=== PATIENT | male | born 1950 | race African-American/Black ===

== ENCOUNTER 2019-09-17 16:16 | Inpatient (IN) | payer OTHER ==
[~2019-09-17] VITALS: Ht 190.5 cm; Wt 99.8 kg
[2019-09-17 16:20] VITALS: BP 153/82
--- NOTE | 2019-09-17 16:42 | Emergency Room Report ---
History of Present Illness General Chief Complaint: Generalized Weakness Source: Patient, EMS Present Illness HPI Patient presents with 5 to 7 days of intermittent bouts of near syncope. Is worse when he gets up at night. He has passed out a couple of times. Denies chest pain or palpitations at that time. He feels generalized weakness. In addition he states he has been nauseated without any vomiting or diarrhea. He has passed black tarry stools. He denies any abdominal pain. He has not taken any Pepto-Bismol recently. When he walks he gets out of breath easily. He denies any cough or sore throat. Patient denies any chest pain or palpitations. He has been isolating himself. He has gone to the [employer] to shop but usually covers his face with a mask. He denies any known contact with COVID-19 suspected people. No fevers, chills, dysuria, joint pain, rashes, depression, anxiety, headache. Patient has a history of hypertension. 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 [place] Reviewed Nursing Documentation: PMH: Agreed; PSxH: Agreed Nursing Documentation-PM Past Medical History: No History, Except For Hx Hypertension: Yes Review of Systems All Other Systems: negative except mentioned in HPI Physical Exam Vital Signs Date Time Temp Pulse Resp B/P (MAP) Pulse Ox O2 Delivery O2 Flow Rate FiO2 09/17/19 16:08 98.6 80 17 153/82 (105) 98 Room Air Sp02 EP Interpretation: reviewed, normal General Appearance: well appearing, no apparent distress, GCS 15, other - dyspneic with minimal exertion Head: normocephalic Eyes: bilateral eye normal inspection, bilateral eye PERRL, bilateral eye EOMI ENT: moist mucus membranes Neck: supple Respiratory: lungs clear, normal breath sounds Cardiovascular #1: regular rate, rhythm Cardiovascular #2: 2+ radial (R) Gastrointestinal: normal inspection, normal bowel sounds, non tender, no mass, non-distended Rectal: heme negative stool Genitourinary: no CVA tenderness Musculoskeletal: back normal, normal range of motion, gait/station normal Neurologic: alert, oriented x3, grossly normal Psychiatric: mood/affect normal Skin: no rash, warm/dry Medical Decision Making Diagnostic Impression: Primary Impression: Syncope Qualified Codes: R55 - Syncope and collapse Additional Impression: Pneumonia due to COVID-19 virus ER Course Patient presents with several episodes of syncope associated with dark stools. Differential includes GI bleed, acute myocardial infarction, arrhythmia, vasovagal still amongst others. Evaluation with EKG, chest x-ray and labs. Patient is placed on a quality assurance monitor body. The patient will receive IV hydration, Pepcid and Zofran. Rectal performed and stool is guaiac negative. EKG with nonspecific ST-T wave changes. No acute injury. CXR with possible infiltrates. Patient now has fever. Suspect COVID and patient placed in isolation and COVID testing done. 1700 BC and lactic acid ordered. Rocephin and Azithromycin ordered. Decadron also. Patient desaturates with minimal exertion and gets dyspneic. Low white count with lymphopenia. Inflammatory markers positive. Negative troponin and d-dimer. At this point anticoagulation not indicated. COVID +. Discussed with patient. Patient admitted to telemetry to exclude arrhythmias and also for close monitoring of oxygen and respiratory status. Discussed with Dr. Valentino. Laboratory Tests Test 09/17/19 16:30 09/17/19 17:30 09/17/19 19:40 White Blood Count 6.3 K/UL (4.8-10.8) Red Blood Count 4.63 M/UL (4.70-6.10) L Hemoglobin 12.7 G/DL (14.2-18.0) L Hematocrit 40.6 % (42.0-52.0) L Mean Corpuscular Volume 88 FL (80-99) Mean Corpuscular Hemoglobin 27.4 PG (27.0-31.0) Mean Corpuscular Hemoglobin Concent 31.2 G/DL (32.0-36.0) L Red Cell Distribution Width 13.5 % (11.6-14.8) Platelet Count 229 K/UL (150-450) Mean Platelet Volume 6.8 FL (6.5-10.1) Neutrophils (%) (Auto) 77.4 % (45.0-75.0) H Lymphocytes (%) (Auto) 15.7 % (20.0-45.0) L Monocytes (%) (Auto) 6.2 % (1.0-10.0) Eosinophils (%) (Auto) 0.1 % (0.0-3.0) Basophils (%) (Auto) 0.7 % (0.0-2.0) Prothrombin Time 10.7 SEC (9.30-11.50) Prothrombin Time INR 1.0 (0.9-1.1) Activated Partial Thromboplast Time 30 SEC (23-33) D-Dimer 0.48 mg/L FEU (0.00-0.49) Sodium Level 135 MMOL/L (136-145) L Potassium Level 4.0 MMOL/L (3.5-5.1) Chloride Level 99 MMOL/L (98-107) Carbon Dioxide Level 24 MMOL/L (21-32) Anion Gap 12 mmol/L (5-15) Blood Urea Nitrogen 18 mg/dL (7-18) Creatinine 1.8 MG/DL (0.55-1.30) H Estimated Glomerular Filtration Rate 37.5 mL/min (>60) Glucose Level 111 MG/DL (74-106) H Calcium Level 8.5 MG/DL (8.5-10.1) Ferritin 992 NG/ML (8-388) H Total Bilirubin 0.2 MG/DL (0.2-1.0) Aspartate Amino Transferase (AST) 90 U/L (15-37) H Alanine Aminotransferase (ALT) 98 U/L (12-78) H Alkaline Phosphatase 67 U/L (46-116) Lactate Dehydrogenase 392 U/L (81-234) H Total Creatine Kinase 457 U/L (26-308) H Troponin I 0.020 ng/mL (0.000-0.056) Pro-B-Type Natriuretic Peptide 114 pg/mL (0-125) Total Protein 7.2 G/DL (6.4-8.2) Albumin 3.3 G/DL (3.4-5.0) L Globulin 3.9 g/dL Albumin/Globulin Ratio 0.8 (1.0-2.7) L Lipase 282 U/L (73-393) Lactic Acid Level 0.70 mmol/L (0.4-2.0) Urine Color Pale yellow Urine Appearance Clear Urine pH 6 (4.5-8.0) Urine Specific [place] 1.015 (1.005-1.035) Urine Protein 2+ (NEGATIVE) H Urine Glucose (UA) Negative (NEGATIVE) Urine Ketones Negative (NEGATIVE) Urine Blood 2+ (NEGATIVE) H Urine Nitrite Negative (NEGATIVE) Urine Bilirubin Negative (NEGATIVE) Urine Urobilinogen Normal MG/DL (0.0-1.0) Urine Leukocyte Esterase Negative (NEGATIVE) Urine RBC 5-10 /HPF (0 - 0) H Urine WBC 0-2 /HPF (0 - 0) Urine Squamous Epithelial Cells Few /LPF (NONE/OCC) Urine Bacteria Few /HPF (NONE) Urine Opiates Screen Negative (NEGATIVE) Urine Barbiturates Screen Negative (NEGATIVE) Phencyclidine (PCP) Screen Negative (NEGATIVE) Urine Amphetamines Screen Negative (NEGATIVE) Urine Benzodiazepines Screen Negative (NEGATIVE) Urine Cocaine Screen Negative (NEGATIVE) Urine Marijuana (THC) Screen Negative (NEGATIVE) Microbiology Date/Time Source Procedure Growth Status 09/17/19 17:05 Nasopharynx SARS-CoV-2 RdRp Gene Assay - Final Complete EKG Diagnostic Results Rate: normal Rhythm: NSR ST Segments: no acute changes Rhythm Strip Diag. Results EP Interpretation: yes Rhythm: NSR, no PVC's, no ectopy Chest X-Ray Diagnostic Results Chest X-Ray Diagnostic Results : Chest X-Ray Ordered: Yes # of Views/Limited/Complete: 1 View Indication: Shortness of Breath EP Interpretation: Yes Interpretation: no effusion, no pneumothorax, other - bilat infiltrates Impression: Other Electronically Signed by: Electronically signed by Owen Lopez MD Last Vital Signs Date Time Temp Pulse Resp B/P (MAP) Pulse Ox O2 Delivery O2 Flow Rate FiO2 09/17/19 23:00 60 09/17/19 22:30 98.6 18 152/84 98 Room Air Status: improved Disposition: ADMITTED INPATIENT Condition: Serious Owen Lopez MD Sep 17, 2019 16:42
--- NOTE | 2019-09-17 17:10 | Diagnostic Imaging Report ---
EXAM: XR Chest, 1 View CLINICAL HISTORY: SYNCOPE TECHNIQUE: Frontal view of the chest. COMPARISON: No relevant prior studies available. FINDINGS: Lungs: Airspace opacities seen within the mid to lower lungs likely inflammatory or infectious. Pleural space: Unremarkable. Heart: Heart is enlarged. Mediastinum: Unremarkable. Bones/joints: Unremarkable. IMPRESSION: Airspace opacities seen within the mid to lower lungs likely inflammatory or infectious.
[2019-09-17] MEDS ORDERED: cefTRIAXone 1 GM in NS 55 ML IVPB ONE (17:15)
[2019-09-17] MEDS ORDERED: Azithromycin 500 MG in D5W 275 ML IVPB ONE (17:15)
[2019-09-17 17:16] LABS: BASOPHILS % (AUTO) 0.7 % (0.0-2.0); EOSINOPHILS % (AUTO) 0.1 % (0.0-3.0); HEMATOCRIT 40.6 % (42.0-52.0); HEMOGLOBIN 12.7 G/DL (14.2-18.0); LYMPHOCYTES % (AUTO) 15.7 % (20.0-45.0); MEAN CORPUSCULAR VOLUME 88 FL (80-99); MONOCYTES % (AUTO) 6.2 % (1.0-10.0); NEUTROPHILS % (AUTO) 77.4 % (45.0-75.0); PLATELET COUNT 229 K/UL (150-450); RED BLOOD COUNT 4.63 M/UL (4.70-6.10); RED CELL DISTRIBUTION WIDTH 13.5 % (11.6-14.8); WHITE BLOOD COUNT 6.3 K/UL (4.8-10.8)
[2019-09-17 17:19] LABS: ANION GAP 12 mmol/L (5-15); BLOOD UREA NITROGEN 18 mg/dL (7-18); CALCIUM 8.5 MG/DL (8.5-10.1); CARBON DIOXIDE 24 MMOL/L (21-32); CHLORIDE 99 MMOL/L (98-107); CREATININE 1.8 MG/DL (0.55-1.30); SODIUM 135 MMOL/L (136-145)
[2019-09-17 17:29] LABS: ALANINE AMINOTRANSFERASE 98 U/L (12-78); ALBUMIN 3.3 G/DL (3.4-5.0); ALBUMIN/GLOBULIN RATIO 0.8 (1.0-2.7); ALKALINE PHOSPHATASE 67 U/L (46-116); ASPARTATE AMINO TRANSFERASE 90 U/L (15-37); BILIRUBIN,TOTAL 0.2 MG/DL (0.2-1.0); CREATINE KINASE 457 U/L (26-308)
[2019-09-17 17:51] LABS: FERRITIN 992 NG/ML (8-388); LACTATE DEHYDROGENASE 392 U/L (81-234)
[2019-09-17 19:20] VITALS: BP 154/85
[2019-09-17 20:15] LABS: APPEARANCE,URINE CLEAR; BILIRUBIN, URINE NEGATIVE (NEGATIVE); COLOR,URINE PALE YELLOW; GLUCOSE, URINE (UA) NEGATIVE (NEGATIVE); KETONES,URINE NEGATIVE (NEGATIVE); LEUKOCYTE ESTERASE ,URINE NEGATIVE (NEGATIVE); NITRITE,URINE NEGATIVE (NEGATIVE); PH,URINE 6 (4.5-8.0); PROTEIN,URINE 2+ (NEGATIVE); UROBILINOGEN,URINE NORMAL MG/DL (0.0-1.0)
[2019-09-17 21:07] VITALS: BP 156/83
[2019-09-17 23:15] VITALS: BP 147/75
[2019-09-17] MEDS ORDERED: Pantoprazole 80 MG in NS 250 ML IV SCH (23:30)
[2019-09-17] MEDS ORDERED: Acetaminophen 650 MG SUPP RECTAL PRN (23:30)
[2019-09-17] MEDS ORDERED: AMLODIPINE BESYL5 MG ORAL (23:47)
[2019-09-18] MEDS: D5 1/2NS w/KCl 20mEq 1,000 ML IV SCH ×4 (01:28→23:43)
[2019-09-18 03:56] VITALS: BP 136/77
[2019-09-18 06:25] LABS: HEMATOCRIT 40.4 % (42.0-52.0); HEMOGLOBIN 12.7 G/DL (14.2-18.0); MEAN CORPUSCULAR VOLUME 88 FL (80-99); PLATELET COUNT 249 K/UL (150-450); RED BLOOD COUNT 4.57 M/UL (4.70-6.10); RED CELL DISTRIBUTION WIDTH 13.2 % (11.6-14.8); WHITE BLOOD COUNT 5.5 K/UL (4.8-10.8)
--- NOTE | 2019-09-18 06:45 | General Progress Note ---
Assessment/Plan Problem List: (1) Black stools ICD Codes: K92.1 - Melena SNOMED: 421873980 (2) Syncope ICD Codes: R55 - Syncope and collapse SNOMED: 454542325 Qualifiers: Qualified Codes: R55 - Syncope and collapse (3) Pneumonia due to COVID-19 virus ICD Codes: U07.1 - COVID-19; J12.89 - Other viral pneumonia SNOMED: 266823884, [id number] Assessment/Plan: stable H&H above 12 pending stool ob start ppi bid EGD on hold given COVID + and stable H&H start clears and advance as tolerated Subjective Allergies: Coded Allergies: No Known Allergies (Unverified , 09/17/19) Objective Last 24 Hour Vital Signs Date Time Temp Pulse Resp B/P (MAP) Pulse Ox O2 Delivery O2 Flow Rate FiO2 09/18/19 04:23 50 09/18/19 03:56 97.9 54 20 136/77 (96) 98 09/17/19 23:42 60 09/17/19 23:15 97.9 59 20 147/75 (99) 98 09/17/19 23:00 60 09/17/19 22:30 98.6 87 18 152/84 98 Room Air 09/17/19 22:27 Room Air 09/17/19 21:07 98.6 84 17 156/83 98 Room Air 09/17/19 19:20 98.9 09/17/19 19:20 98.6 82 17 154/85 98 Room Air 09/17/19 16:20 98.6 17 153/82 98 Room Air 09/17/19 16:20 80 17 Room Air 09/17/19 16:08 98.6 80 17 153/82 (105) 98 Room Air Intake and Output 09/17/19 09/18/19 19:00 07:00 Intake Total 1575 ml Output Total 2000 ml Balance -425 ml Intake Oral 200 ml IV Total 1375 ml Output Urine Total 2000 ml # Voids 6 Laboratory Tests 09/17/19 16:30: White Blood Count 6.3, Red Blood Count 4.63L, Hemoglobin 12.7L, Hematocrit 40.6L , Mean Corpuscular Volume 88, Mean Corpuscular Hemoglobin 27.4, Mean Corpuscular Hemoglobin Concent 31.2L, Red Cell Distribution Width 13.5, Platelet Count 229, Mean Platelet Volume 6.8, Neutrophils (%) (Auto) 77.4H, Lymphocytes (%) (Auto) 15.7L, Monocytes (%) (Auto) 6.2, Eosinophils (%) (Auto) 0.1, Basophils (%) (Auto) 0.7, Prothrombin Time 10.7, Prothromb Time International Ratio 1.0, Activated Partial Thromboplast Time 30, D-Dimer 0.48, Sodium Level 135L, Potassium Level 4.0, Chloride Level 99, Carbon Dioxide Level 24, Anion Gap 12, Blood Urea Nitrogen 18, Creatinine 1.8H, Estimat Glomerular Filtration Rate 37.5, Glucose Level 111H, Calcium Level 8.5, Ferritin 992H, Total Bilirubin 0.2, Aspartate Amino Transf (AST/SGOT) 90H, Alanine Aminotransferase (ALT/SGPT) 98H, Alkaline Phosphatase 67, Lactate Dehydrogenase 392H, Total Creatine Kinase 457H, Troponin I 0.020, Pro-B-Type Natriuretic Peptide 114, Total Protein 7.2, Albumin 3.3L, Globulin 3.9, Albumin/Globulin Ratio 0.8L, Lipase 282 09/17/19 17:30: Lactic Acid Level 0.70 09/17/19 19:40: Urine Color Pale yellow, Urine Appearance Clear, Urine pH 6, Urine Specific [place] 1.015, Urine Protein 2+H, Urine Glucose (UA) Negative, Urine Ketones Negative, Urine Blood 2+H, Urine Nitrite Negative, Urine Bilirubin Negative, Urine Urobilinogen Normal, Urine Leukocyte Esterase Negative, Urine RBC 5-10H, Urine WBC 0-2, Urine Squamous Epithelial Cells Few, Urine Bacteria Few, Urine Opiates Screen Negative, Urine Barbiturates Screen Negative, Phencyclidine (PCP ) Screen Negative, Urine Amphetamines Screen Negative, Urine Benzodiazepines Screen Negative, Urine Cocaine Screen Negative, Urine Marijuana (THC) Screen Negative 09/18/19 06:00: White Blood Count 5.5, Red Blood Count 4.57L, Hemoglobin 12.7L, Hematocrit 40.4L , Mean Corpuscular Volume 88, Mean Corpuscular Hemoglobin 27.8, Mean Corpuscular Hemoglobin Concent 31.5L, Red Cell Distribution Width 13.2, Platelet Count 249, Mean Platelet Volume 7.0, Neutrophils (%) (Auto) , Lymphocytes (%) (Auto) , Monocytes (%) (Auto) , Eosinophils (%) (Auto) , Basophils (%) (Auto) , Sodium Level [Pending], Potassium Level [Pending], Chloride Level [Pending], Carbon Dioxide Level [Pending], Blood Urea Nitrogen [ Pending], Creatinine [Pending], Estimat Glomerular Filtration Rate [Pending], Glucose Level [Pending], Calcium Level [Pending], Ferritin [Pending], Lactate Dehydrogenase [Pending], Troponin I [Pending], Neutrophils % (Manual) [Pending] , Lymphocytes % (Manual) [Pending], Platelet Estimate [Pending], Platelet Morphology [Pending], Erythrocyte Sedimentation Rate [Pending], C-Reactive Protein, Quantitative [Pending], Interleukin 6 (IL-6) [Pending] Height (Feet): 6 Height (Inches): 3.00 Weight (Pounds): 222 General Appearance: alert EENT: PERRL/EOMI Neck: supple Cardiovascular: normal rate Respiratory/Chest: decreased breath sounds Abdomen: soft, hypoactive bowel sounds Extremities: non-tender Scott Owens MD Sep 18, 2019 06:45
[2019-09-18 07:06] LABS: ANION GAP 11 mmol/L (5-15); BLOOD UREA NITROGEN 17 mg/dL (7-18); CARBON DIOXIDE 21 MMOL/L (21-32); CHLORIDE 105 MMOL/L (98-107); CREATININE 1.5 MG/DL (0.55-1.30); FERRITIN 967 NG/ML (8-388); LACTATE DEHYDROGENASE 359 U/L (81-234); POTASSIUM 4.9 MMOL/L (3.5-5.1); SODIUM 137 MMOL/L (136-145)
[2019-09-18 08:00] VITALS: BP 137/75
--- NOTE | 2019-09-18 09:43 | History and Physical ---
Michelle Reed BEER MAKER 09/18/19 0943: History of Present Illness General Date patient seen: Sep 18, 2019 Time patient seen: 08:00 Reason for Hospitalization: syncope, + COVID, GI bleeding Present Illness HPI 68 years old male with PMH of hypertension, TURP, presented to emergency room for evaluation of recurrent near syncope episodes. Symptoms were ongoing for a week. Patient passed out couple of times. He denied chest pain and palpitations. He reported generalized weakness. Patient was nauseated , but no vomiting. He reported passing black tarry stools. No abdominal pain. Patient reported shortness of breath while walking , but no cough ,no sore throat . Upon evaluation vital signs were stable ; pulse oximetry was stable on room air and pt was afebrile. Laboratory work-up revealed no leukocytosis ,hemoglobin 12.7 ,hematocrit 40.6, platelet count 229. BUN 18, creatinine 1.8. Glucose 111. Ferritin 992. LDH 392. D dimer 0.48. Troponin 0.02 , proBNP 114. ECG with sinus rhythm, no acute ischemic changes. AST 90 , ALT 98, lipase 282. Lactic acid 0.7 , Urinalysis revealed +2 protein, no pyuria and few bacteria Urine toxicology screen was negative. Rapid COVID-19 was positive. Chest x-ray revealed airspace opacities within the mid to lower lungs. Patient admitted for recurrent syncope , COVID-19 infection , pneumonia, GI bleeding, ROBERT Allergies: Coded Allergies: No Known Allergies (Unverified , 09/17/19) COVID-19 Screening Contact w/high risk pt: No Experienced COVID-19 symptoms?: Yes COVID-19 symptoms experienced: Shortness of Breath Medication History Scheduled Amlodipine Besylate* (Amlodipine Besylate*), 5 MG ORAL DAILY, (Reported) Patient History History Provided By: Patient Healthcare decision maker Resuscitation status Full code Advanced Directive on File Review of Systems Constitutional: Reports: weakness - generalized ENT: Reports: no symptoms Respiratory: Reports: other - SOB with walking Cardiovascular: Reports: no symptoms Gastrointestinal: Reports: see HPI, other - black tarry stools Genitourinary: Reports: other - prodstate surgery Musculoskeletal: Reports: no symptoms Skin: Reports: no symptoms Psychiatric: Reports: no symptoms Neurological: Reports: see HPI, other - recurrent presyncope episodes x 1 week , passed out few times Endocrine: Reports: no symptoms Hematologic/Lymphatic: Reports: no symptoms Physical Exam General Appearance: WD/WN - in NAD , alert Lines, tubes and drains: peripheral HEENT: normocephalic, atraumatic, anicteric, mucous membranes moist Neck: supple Respiratory/Chest: lungs clear, no respiratory distress, no accessory muscle use Cardiovascular/Chest: normal rate Abdomen: normal bowel sounds, non tender, soft Extremities: normal range of motion, no calf tenderness, normal capillary refill, no edema Skin Exam: warm/dry 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, no motor/sensory deficits, alert, oriented x 3, responsive Musculoskeletal: normal muscle bulk Last 24 Hour Vital Signs Date Time Temp Pulse Resp B/P (MAP) Pulse Ox O2 Delivery O2 Flow Rate FiO2 09/18/19 08:21 Room Air 09/18/19 08:00 96.4 58 18 137/75 (95) 98 09/18/19 04:23 50 09/18/19 03:56 97.9 54 20 136/77 (96) 98 09/17/19 23:42 60 09/17/19 23:15 97.9 59 20 147/75 (99) 98 09/17/19 23:00 60 09/17/19 22:30 98.6 87 18 152/84 98 Room Air 09/17/19 22:27 Room Air 09/17/19 21:07 98.6 84 17 156/83 98 Room Air 09/17/19 19:20 98.9 09/17/19 19:20 98.6 82 17 154/85 98 Room Air 09/17/19 16:20 98.6 17 153/82 98 Room Air 09/17/19 16:20 80 17 Room Air 09/17/19 16:08 98.6 80 17 153/82 (105) 98 Room Air Intake and Output 09/17/19 09/18/19 19:00 07:00 Intake Total 1575 ml Output Total 2000 ml Balance -425 ml Intake Oral 200 ml IV Total 1375 ml Output Urine Total 2000 ml # Voids 6 Laboratory Tests Test 09/17/19 16:30 09/17/19 17:30 09/17/19 19:40 09/18/19 06:00 White Blood Count 6.3 K/UL (4.8-10.8) 5.5 K/UL (4.8-10.8) Red Blood Count 4.63 M/UL (4.70-6.10) L 4.57 M/UL (4.70-6.10) L Hemoglobin 12.7 G/DL (14.2-18.0) L 12.7 G/DL (14.2-18.0) L Hematocrit 40.6 % (42.0-52.0) L 40.4 % (42.0-52.0) L Mean Corpuscular Volume 88 FL (80-99) 88 FL (80-99) Mean Corpuscular Hemoglobin 27.4 PG (27.0-31.0) 27.8 PG (27.0-31.0) Mean Corpuscular Hemoglobin Concent 31.2 G/DL (32.0-36.0) L 31.5 G/DL (32.0-36.0) L Red Cell Distribution Width 13.5 % (11.6-14.8) 13.2 % (11.6-14.8) Platelet Count 229 K/UL (150-450) 249 K/UL (150-450) Mean Platelet Volume 6.8 FL (6.5-10.1) 7.0 FL (6.5-10.1) Neutrophils (%) (Auto) 77.4 % (45.0-75.0) H % (45.0-75.0) Lymphocytes (%) (Auto) 15.7 % (20.0-45.0) L % (20.0-45.0) Monocytes (%) (Auto) 6.2 % (1.0-10.0) % (1.0-10.0) Eosinophils (%) (Auto) 0.1 % (0.0-3.0) % (0.0-3.0) Basophils (%) (Auto) 0.7 % (0.0-2.0) % (0.0-2.0) Prothrombin Time 10.7 SEC (9.30-11.50) Prothromb Time International Ratio 1.0 (0.9-1.1) Activated Partial Thromboplast Time 30 SEC (23-33) D-Dimer 0.48 mg/L FEU (0.00-0.49) Sodium Level 135 MMOL/L (136-145) L 137 MMOL/L (136-145) Potassium Level 4.0 MMOL/L (3.5-5.1) 4.9 MMOL/L (3.5-5.1) Chloride Level 99 MMOL/L (98-107) 105 MMOL/L (98-107) Carbon Dioxide Level 24 MMOL/L (21-32) 21 MMOL/L (21-32) Anion Gap 12 mmol/L (5-15) 11 mmol/L (5-15) Blood Urea Nitrogen 18 mg/dL (7-18) 17 mg/dL (7-18) Creatinine 1.8 MG/DL (0.55-1.30) H 1.5 MG/DL (0.55-1.30) H Estimat Glomerular Filtration Rate 37.5 mL/min (>60) 56.1 mL/min (>60) Glucose Level 111 MG/DL (74-106) H 166 MG/DL (74-106) H Calcium Level 8.5 MG/DL (8.5-10.1) 8.0 MG/DL (8.5-10.1) L Ferritin 992 NG/ML (8-388) H 967 NG/ML (8-388) H Total Bilirubin 0.2 MG/DL (0.2-1.0) Aspartate Amino Transf (AST/SGOT) 90 U/L (15-37) H Alanine Aminotransferase (ALT/SGPT) 98 U/L (12-78) H Alkaline Phosphatase 67 U/L (46-116) Lactate Dehydrogenase 392 U/L (81-234) H 359 U/L (81-234) H Total Creatine Kinase 457 U/L (26-308) H Troponin I 0.020 ng/mL (0.000-0.056) 0.006 ng/mL (0.000-0.056) Pro-B-Type Natriuretic Peptide 114 pg/mL (0-125) Total Protein 7.2 G/DL (6.4-8.2) Albumin 3.3 G/DL (3.4-5.0) L Globulin 3.9 g/dL Albumin/Globulin Ratio 0.8 (1.0-2.7) L Lipase 282 U/L (73-393) Lactic Acid Level 0.70 mmol/L (0.4-2.0) Urine Color Pale yellow Urine Appearance Clear Urine pH 6 (4.5-8.0) Urine Specific [place] 1.015 (1.005-1.035) Urine Protein 2+ (NEGATIVE) H Urine Glucose (UA) Negative (NEGATIVE) Urine Ketones Negative (NEGATIVE) Urine Blood 2+ (NEGATIVE) H Urine Nitrite Negative (NEGATIVE) Urine Bilirubin Negative (NEGATIVE) Urine Urobilinogen Normal MG/DL (0.0-1.0) Urine Leukocyte Esterase Negative (NEGATIVE) Urine RBC 5-10 /HPF (0 - 0) H Urine WBC 0-2 /HPF (0 - 0) Urine Squamous Epithelial Cells Few /LPF (NONE/OCC) Urine Bacteria Few /HPF (NONE) Urine Opiates Screen Negative (NEGATIVE) Urine Barbiturates Screen Negative (NEGATIVE) Phencyclidine (PCP) Screen Negative (NEGATIVE) Urine Amphetamines Screen Negative (NEGATIVE) Urine Benzodiazepines Screen Negative (NEGATIVE) Urine Cocaine Screen Negative (NEGATIVE) Urine Marijuana (THC) Screen Negative (NEGATIVE) Differential Total Cells Counted 100 Neutrophils % (Manual) 78 % (45-75) H Lymphocytes % (Manual) 17 % (20-45) L Monocytes % (Manual) 5 % (1-10) Eosinophils % (Manual) 0 % (0-3) Basophils % (Manual) 0 % (0-2) Band Neutrophils 0 % (0-8) Platelet Estimate Adequate Platelet Morphology Normal Red Blood Cell Morphology Normal Erythrocyte Sedimentation Rate 56 MM/HR (0-20) H C-Reactive Protein, Quantitative 1.1 mg/dL (0.00-0.90) H Interleukin 6 (IL-6) Pending Microbiology Date/Time Source Procedure Growth Status 09/17/19 17:05 Nasopharynx SARS-CoV-2 RdRp Gene Assay - Final Complete Height (Feet): 6 Height (Inches): 3.00 Weight (Pounds): 222 Medications Current Medications Medications (Trade) Dose Ordered Sig/Dae Route PRN Reason Start Time Stop Time Status Last Admin Dose Admin Acetaminophen (Tylenol) 650 mg Q4H PRN ORAL Mild Pain (Pain Scale 1-3) 09/17/19 23:30 10/17/19 23:29 Acetaminophen (Tylenol) 650 mg Q4H PRN RECTAL Mild Pain (Pain Scale 1-3) 09/17/19 23:30 10/17/19 23:29 Amlodipine Besylate (Norvasc) 5 mg DAILY ORAL 09/18/19 09:00 10/18/19 08:59 Dextrose/ Electrolytes 1,000 ml @ 120 mls/hr Q8H20M IV 09/17/19 23:30 10/17/19 23:29 09/18/19 01:28 Ondansetron HCl (Zofran) 4 mg Q4H PRN IVP Nausea & Vomiting 09/17/19 23:30 10/17/19 23:29 Pantoprazole (Protonix) 40 mg EVERY 12 HOURS IV 09/18/19 09:00 10/18/19 08:59 Assessment/Plan Assessment/Plan: ASSESSMENT COVID-19 infection Pneumonia likely due to COVID-19 Syncope GI bleeding ROBERT Hypertension Transaminitis PLAN OF CARE tele isolation O2 titrate to keep sat above 92%, MDI fup with regular COVID testing empiric abx : Azithromycin and ceftriaxone will add Zinc and vit C fup with CXR hold on steroid for now, given GI bleeding ID consult pending Venous Duplex BLE SCD given GI bleeding , D diemr stable monitor inflammatory markers, elevated ferritin and LDT check IL-6 serial troponin x 2 NGT, ECG no acute ischemic changes, r/o for acute [place] cardio eval pending ECHO BP management with CCB orthostatic VS syncope with diff plausible etiologies, including COVID, orthostatic changes, dehydration, GI bleed Protonix gtt GI follows trend LFT generous IVF monitor renal parameters, lytes, avoid nephrotoxics, nephro eval pending case discussed and evaluated by supervising physician Wiliam Valentino MD 09/18/19 1259: History of Present Illness General Reason for Hospitalization: syncope, + COVID, GI bleeding Present Illness Allergies: Coded Allergies: No Known Allergies (Unverified , 09/17/19) Medication History Scheduled Amlodipine Besylate* (Amlodipine Besylate*), 5 MG ORAL DAILY, (Reported) Assessment/Plan Assessment/Plan: Patient seen and examined with BEER MAKER. Agree with above A&P as it reflects our joint deliberations. COVID19 PNA Possible GIB/melanotic stool Syncope ROBERT -Supportive care -PRN O2 -No steroids 2/2 GIB -ID eval, will consider Remdesevir EUA -Continue Abx for now -Tele, trend trops, cards eval -mIVF, renal eval, monitor electrolytes -F/U GI/surg recs, PPI, hold off on endoscopy for now Michelle Reed NP Sep 18, 2019 09:43 Wiliam Valentino MD Sep 18, 2019 12:59
[2019-09-18] MEDS ORDERED: Albuterol 90mcg Inhaler 8gm INH PRN (09:45)
[2019-09-18] MEDS: Pantoprazole Inj IV SCH ×2 (09:46→20:53)
[2019-09-18] MEDS ORDERED: NS 275ml ONE (10:06)
--- NOTE | 2019-09-18 10:44 | Consultation ---
History of Present Illness General Date patient seen: Sep 18, 2019 Reason for Hospitalization: Generalized Weakness Present Illness HPI This is a very pleasant 68-year-old male with history of TURP that presented to [facility] complaining of syncopal episodes and change in bowel consistency. Patient states that recently when he is been standing up he has been feeling faint and passing out. Furthermore has had episodes of nausea and nonbloody emesis. He furthermore notes changes in stool consistency and has in the past 2 weeks his stool has gone from brown to darker near blackish color melena. Admitted for further care work-up and management. Considerations of GI bleed. Surgery called to evaluate and assist with care. Patient seen, patient evaluated, chart reviewed. Patient states that he has not had endoscopy or colonoscopy in the past. He has not had prior changes in stool consistency or color. Has been otherwise regular until the past 2 weeks when he is noted such changes. Hemoglobin stable. COVID positive. No abdominal pain. Neurological okay. States does have upset stomach at times when it feels empty. Allergies: Coded Allergies: No Known Allergies (Unverified , 09/17/19) COVID-19 Screening Contact w/high risk pt: No Experienced COVID-19 symptoms?: Yes COVID-19 symptoms experienced: Shortness of Breath Medication History Scheduled Amlodipine Besylate* (Amlodipine Besylate*), 5 MG ORAL DAILY, (Reported) Patient History History Provided By: Patient, Medical Record, PMD Healthcare decision maker Resuscitation status Advanced Directive on File Past Medical/Surgical History Past Medical/Surgical History: (1) Black stools (2) Pneumonia due to COVID-19 virus (3) Syncope Review of Systems Review of Symptoms General ROS: no weight loss or fever Psychological ROS: no depression or mood changes, no memory loss Ophthalmic ROS: no visual changes or eye irritation ENT ROS: no nasal congestion, hearing loss, dizziness Allergy and Immunology ROS: no allergic symptoms or urticaria Hematological and Lymphatic ROS: no swollen glands, unusual bleeding or bruising Endocrine ROS: no polyuria, polydipsia, weight changes, temperature intolerance Respiratory ROS: no cough, shortness of breath, or wheezing Cardiovascular ROS: no chest pain or dyspnea on exertion Gastrointestinal ROS: denies abdominal pain, bright red blood in stool. Musculoskeletal ROS: no myalgias or arthralgias Neurological ROS: no TIA or stroke symptoms Dermatological ROS: no new or changing skin lesions, rashes or pruritis Physical Exam Physical Exam General appearance: alert, cooperative, no distress, appears stated age Head: Normocephalic, without obvious abnormality, atraumatic Eyes: conjunctivae/corneas clear. PERRL, EOM's intact. Fundi benign Throat: Lips, mucosa, and tongue normal. Teeth and gums normal Neck: supple, symmetrical, trachea midline, no adenopathy, thyroid: not enlarged, symmetric, no tenderness/mass/nodules, no carotid bruit and no JVD Lungs: clear to auscultation bilaterally Heart: regular rate and rhythm, S1, S2 normal, no murmur, click, rub or gallop Abdomen: soft, non-tender. Bowel sounds normal. No masses, no organomegaly Extremities: extremities normal, atraumatic, no cyanosis or edema Pulses: 2+ and symmetric Skin: Skin color, texture, turgor normal. No rashes or lesions Neurologic: Grossly normal Last 24 Hour Vital Signs Date Time Temp Pulse Resp B/P (MAP) Pulse Ox O2 Delivery O2 Flow Rate FiO2 09/18/19 09:46 58 137/75 09/18/19 08:21 Room Air 09/18/19 08:00 51 09/18/19 08:00 96.4 58 18 137/75 (95) 98 09/18/19 04:23 50 09/18/19 03:56 97.9 54 20 136/77 (96) 98 09/17/19 23:42 60 09/17/19 23:15 97.9 59 20 147/75 (99) 98 09/17/19 23:00 60 09/17/19 22:30 98.6 87 18 152/84 98 Room Air 09/17/19 22:27 Room Air 09/17/19 21:07 98.6 84 17 156/83 98 Room Air 09/17/19 19:20 98.9 09/17/19 19:20 98.6 82 17 154/85 98 Room Air 09/17/19 16:20 98.6 17 153/82 98 Room Air 09/17/19 16:20 80 17 Room Air 09/17/19 16:08 98.6 80 17 153/82 (105) 98 Room Air Intake and Output 09/17/19 09/18/19 19:00 07:00 Intake Total 1575 ml Output Total 2000 ml Balance -425 ml Intake Oral 200 ml IV Total 1375 ml Output Urine Total 2000 ml # Voids 6 Laboratory Tests Test 09/17/19 16:30 09/17/19 17:30 09/17/19 19:40 09/18/19 06:00 White Blood Count 6.3 K/UL (4.8-10.8) 5.5 K/UL (4.8-10.8) Red Blood Count 4.63 M/UL (4.70-6.10) L 4.57 M/UL (4.70-6.10) L Hemoglobin 12.7 G/DL (14.2-18.0) L 12.7 G/DL (14.2-18.0) L Hematocrit 40.6 % (42.0-52.0) L 40.4 % (42.0-52.0) L Mean Corpuscular Volume 88 FL (80-99) 88 FL (80-99) Mean Corpuscular Hemoglobin 27.4 PG (27.0-31.0) 27.8 PG (27.0-31.0) Mean Corpuscular Hemoglobin Concent 31.2 G/DL (32.0-36.0) L 31.5 G/DL (32.0-36.0) L Red Cell Distribution Width 13.5 % (11.6-14.8) 13.2 % (11.6-14.8) Platelet Count 229 K/UL (150-450) 249 K/UL (150-450) Mean Platelet Volume 6.8 FL (6.5-10.1) 7.0 FL (6.5-10.1) Neutrophils (%) (Auto) 77.4 % (45.0-75.0) H % (45.0-75.0) Lymphocytes (%) (Auto) 15.7 % (20.0-45.0) L % (20.0-45.0) Monocytes (%) (Auto) 6.2 % (1.0-10.0) % (1.0-10.0) Eosinophils (%) (Auto) 0.1 % (0.0-3.0) % (0.0-3.0) Basophils (%) (Auto) 0.7 % (0.0-2.0) % (0.0-2.0) Prothrombin Time 10.7 SEC (9.30-11.50) Prothromb Time International Ratio 1.0 (0.9-1.1) Activated Partial Thromboplast Time 30 SEC (23-33) D-Dimer 0.48 mg/L FEU (0.00-0.49) Sodium Level 135 MMOL/L (136-145) L 137 MMOL/L (136-145) Potassium Level 4.0 MMOL/L (3.5-5.1) 4.9 MMOL/L (3.5-5.1) Chloride Level 99 MMOL/L (98-107) 105 MMOL/L (98-107) Carbon Dioxide Level 24 MMOL/L (21-32) 21 MMOL/L (21-32) Anion Gap 12 mmol/L (5-15) 11 mmol/L (5-15) Blood Urea Nitrogen 18 mg/dL (7-18) 17 mg/dL (7-18) Creatinine 1.8 MG/DL (0.55-1.30) H 1.5 MG/DL (0.55-1.30) H Estimat Glomerular Filtration Rate 37.5 mL/min (>60) 56.1 mL/min (>60) Glucose Level 111 MG/DL (74-106) H 166 MG/DL (74-106) H Calcium Level 8.5 MG/DL (8.5-10.1) 8.0 MG/DL (8.5-10.1) L Ferritin 992 NG/ML (8-388) H 967 NG/ML (8-388) H Total Bilirubin 0.2 MG/DL (0.2-1.0) Aspartate Amino Transf (AST/SGOT) 90 U/L (15-37) H Alanine Aminotransferase (ALT/SGPT) 98 U/L (12-78) H Alkaline Phosphatase 67 U/L (46-116) Lactate Dehydrogenase 392 U/L (81-234) H 359 U/L (81-234) H Total Creatine Kinase 457 U/L (26-308) H Troponin I 0.020 ng/mL (0.000-0.056) 0.006 ng/mL (0.000-0.056) Pro-B-Type Natriuretic Peptide 114 pg/mL (0-125) Total Protein 7.2 G/DL (6.4-8.2) Albumin 3.3 G/DL (3.4-5.0) L Globulin 3.9 g/dL Albumin/Globulin Ratio 0.8 (1.0-2.7) L Lipase 282 U/L (73-393) Lactic Acid Level 0.70 mmol/L (0.4-2.0) Urine Color Pale yellow Urine Appearance Clear Urine pH 6 (4.5-8.0) Urine Specific [place] 1.015 (1.005-1.035) Urine Protein 2+ (NEGATIVE) H Urine Glucose (UA) Negative (NEGATIVE) Urine Ketones Negative (NEGATIVE) Urine Blood 2+ (NEGATIVE) H Urine Nitrite Negative (NEGATIVE) Urine Bilirubin Negative (NEGATIVE) Urine Urobilinogen Normal MG/DL (0.0-1.0) Urine Leukocyte Esterase Negative (NEGATIVE) Urine RBC 5-10 /HPF (0 - 0) H Urine WBC 0-2 /HPF (0 - 0) Urine Squamous Epithelial Cells Few /LPF (NONE/OCC) Urine Bacteria Few /HPF (NONE) Urine Opiates Screen Negative (NEGATIVE) Urine Barbiturates Screen Negative (NEGATIVE) Phencyclidine (PCP) Screen Negative (NEGATIVE) Urine Amphetamines Screen Negative (NEGATIVE) Urine Benzodiazepines Screen Negative (NEGATIVE) Urine Cocaine Screen Negative (NEGATIVE) Urine Marijuana (THC) Screen Negative (NEGATIVE) Differential Total Cells Counted 100 Neutrophils % (Manual) 78 % (45-75) H Lymphocytes % (Manual) 17 % (20-45) L Monocytes % (Manual) 5 % (1-10) Eosinophils % (Manual) 0 % (0-3) Basophils % (Manual) 0 % (0-2) Band Neutrophils 0 % (0-8) Platelet Estimate Adequate Platelet Morphology Normal Red Blood Cell Morphology Normal Erythrocyte Sedimentation Rate 56 MM/HR (0-20) H C-Reactive Protein, Quantitative 1.1 mg/dL (0.00-0.90) H Interleukin 6 (IL-6) Pending Microbiology Date/Time Source Procedure Growth Status 09/17/19 17:05 Nasopharynx SARS-CoV-2 RdRp Gene Assay - Final Complete Height (Feet): 6 Height (Inches): 3.00 Weight (Pounds): 222 Medications Current Medications Medications (Trade) Dose Ordered Sig/Dae Route PRN Reason Start Time Stop Time Status Last Admin Dose Admin Acetaminophen (Tylenol) 650 mg Q4H PRN ORAL Mild Pain (Pain Scale 1-3) 09/17/19 23:30 10/17/19 23:29 Acetaminophen (Tylenol) 650 mg Q4H PRN RECTAL Mild Pain (Pain Scale 1-3) 09/17/19 23:30 10/17/19 23:29 Albuterol Sulfate (Proventil MDI) 2 puff Q4H PRN INH Shortness of Breath 09/18/19 09:45 12/17/19 09:44 Amlodipine Besylate (Norvasc) 5 mg DAILY ORAL 09/18/19 09:00 10/18/19 08:59 09/18/19 09:46 Ascorbic Acid (Vitamin C) 500 mg TWICE A DAY ORAL 09/18/19 18:00 10/18/19 17:59 Dextrose/ Electrolytes 1,000 ml @ 120 mls/hr Q8H20M IV 09/17/19 23:30 10/17/19 23:29 09/18/19 01:28 Ondansetron HCl (Zofran) 4 mg Q4H PRN IVP Nausea & Vomiting 09/17/19 23:30 10/17/19 23:29 Pantoprazole (Protonix) 40 mg EVERY 12 HOURS IV 09/18/19 09:00 10/18/19 08:59 09/18/19 09:46 Zinc Sulfate (Zinc Sulfate) 220 mg DAILY ORAL 09/19/19 09:00 12/18/19 08:59 Assessment/Plan Problem List: (1) GI bleed Assessment & Plan: 68-year-old male with recent changes in stool consistency and color. Melena. Has been identified approximately 2 weeks now. No bright red blood noted. No active bleeding noted. Anemia but hemoglobin stable. Has not had a colonoscopy in the past or an endoscopy prior. Currently COVID positive. GI input noted and appreciated. No active bleeding will hold on endoscopy during positive viral effect. We will plan for treating COVID related pneumonia and plan for potential elective colonoscopy endoscopy. In the meantime if active bleeding noted or worsening condition may consider with precautions. No acute surgical intervention planned. We will monitor with serial exams Trend labs Okay for diet as tolerated We will monitor stool Thank you for let me participate in patient's care will follow with recommendations ICD Codes: K92.2 - Gastrointestinal hemorrhage, unspecified SNOMED: 42115551 (2) Lab test positive for detection of COVID-19 virus ICD Codes: U07.1 - COVID-19 SNOMED: 748837589, 853251560 (3) Black stools ICD Codes: K92.1 - Melena SNOMED: 474895964 (4) Pneumonia due to COVID-19 virus Assessment & Plan: Lungs: Airspace opacities seen within the mid to lower lungs likely inflammatory or infectious. Pleural space: Unremarkable. Heart: Heart is enlarged. Mediastinum: Unremarkable. Bones/joints: Unremarkable. IMPRESSION: Airspace opacities seen within the mid to lower lungs likely inflammatory or infectious. ICD Codes: U07.1 - COVID-19; J12.89 - Other viral pneumonia SNOMED: 711335871, 389020086 (5) Syncope ICD Codes: R55 - Syncope and collapse SNOMED: 336038776 Qualifiers: Qualified Codes: R55 - Syncope and collapse Kwasi Epstein Sep 18, 2019 10:44
[2019-09-18 12:00] VITALS: BP 149/77
[2019-09-18 16:00] VITALS: BP 149/86
--- NOTE | 2019-09-18 16:32 | Consultation ---
Consult Note Consult Note Cardiology for Dr Dunn Full consult dictated [id number] Lana Arrington MD Sep 18, 2019 16:32
[2019-09-18] MEDS: Ascorbic Acid 500mg tab ORAL SCH (18:11)
--- NOTE | 2019-09-18 18:30 | Consultation ---
DATE OF CONSULTATION: 09/18/2019 Cardiology Consultation CONSULTING PHYSICIAN: Lana Arrington MD. This is a Cardiology consulting done as coverage for Miguel Dunn MD. REASON FOR CONSULTATION: Syncope. HISTORY OF PRESENT ILLNESS: Mr. Sutherland is a 68-year-old, man with a history of hypertension, who complains of about a 10-day history of progressive weakness, nausea, vomiting (food, fluid, no hematemesis or coffee-grounds emesis) and loose dark stool. He had a few episodes of dizziness and brief loss of consciousness without injury. He presented to the emergency room, where he was afebrile with pulse 80 sinus rhythm, blood pressure 153/82. He was admitted and has tested positive for COVID. Cardiology evaluation was requested for evaluation and treatment of his syncope. He has no history of chest pain, coronary artery disease, congestive heart failure, or arrhythmia. MEDICATIONS: At home, amlodipine 5 mg daily, and in the hospital albuterol inhaler q.4h p.r.n., Protonix 40 mg IV q.12 hours, Zofran 4 mg IV q.4 h. p.r.n., and Tylenol as needed. ALLERGIES: No known drug allergies. PAST MEDICAL HISTORY: As noted above. History of hypertension, history of BPH, status post TURP. 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 He has no history of tobacco, alcohol or drug use. PHYSICAL EXAMINATION: VITAL SIGNS: Blood pressure is 149/77, pulse 61 regular, respirations 20, temperature 100.2. Alert, well-developed male, in no acute distress. Oxygen saturation is 98% on room air. HEENT: Normocephalic, atraumatic. Pupils are equal, round, and reactive to light. Sclerae anicteric. Oral mucosa are moist. NECK: Supple. There is no jugular venous distention. No adenopathy. Carotid pulses are 2+ bilateral without bruits. LUNGS: Clear to auscultation bilaterally. HEART: Regular rate and rhythm. S1, S2 with no murmur or S3. ABDOMEN: Soft, nondistended, nontender. No palpable mass. EXTREMITIES: No cyanosis, clubbing, or edema. Distal lower extremity pulses are intact. SKIN: No rashes or lesions. Normal turgor. LABORATORY DATA: Hemoglobin 12.7, white blood count 5500, and platelets 249,000. Sedimentation rate 56, sodium 137, potassium 4.9, chloride 105, bicarb 21, BUN 17, and creatinine 1.5, troponin 0.006. COVID rapid positive. Chest x-ray showed bilateral airspace opacities in the mid to lower lungs. EKG shows sinus bradycardia, rate of 49 beats per minute, axis +[address]-segment or T-wave changes. QT interval 470 milliseconds. ASSESSMENT AND RECOMMENDATIONS: Mr. Sutherland is a 68-year-old man with hypertension who was admitted with a 10-day history of progressive weakness, nausea, vomiting, dark stools, possible melena and two to three syncopal episodes. He has been diagnosed with COVID pneumonia. He is currently hypertensive after receiving intravenous fluids (2 liters). His heart rate was relatively slow, sinus bradycardia in the 40s this morning, but has now increased to 60s to 50s. I believe his recent syncope was likely due to orthostasis in the setting of COVID pneumonia and decreased oral intake in this setting. However cannot rule out bradyarrhythmia as it appears that the patient does have some degree of sinus node disease. I would recommend continuing intravenous hydration, would obtain Infectious Disease evaluation with regard to his COVID pneumonia for further treatment recommendations. We would continue amlodipine for hypertension. Gastroenterology evaluation is recommended for further assessment of possible gastrointestinal bleeding. However at this time, he appears hemodynamically stable with normal vital signs, low-grade fever, good oxygen saturation on room air, and no evidence for active bleeding. We would continue telemetry monitoring. Follow orthostatic vital signs and maintain hydration, as above. Further recommendations will be made based on his clinical course. Once he is COVID negative, then would favor obtaining an echo to evaluate left ventricular function and wall motion. Dr. Dunn will continue to follow Mr. Sutherland when he returns on 09/19/2019. Thank you for allowing us to participate in his care. Lana Arrington M.D. DR: Yeison JOB#: [id number] CC:
--- NOTE | 2019-09-18 18:59 | Consultation ---
DATE OF CONSULTATION: 09/18/2019 NEPHROLOGY CONSULTATION CONSULTING PHYSICIAN: Dallas Ness MD. REFERRING PHYSICIAN: Wiliam Valentino MD. REASON FOR CONSULTATION: Acute kidney injury, abnormal labs. HISTORY OF PRESENT ILLNESS: The patient is a 68-year-old man who has generally been in good health. He had a prior prostatectomy, but is voiding well. Prior to this over the past several days, he has had generalized weakness, nausea, vomiting, some dark stools, and an episode of syncope or near syncope. He was found to have a positive test for COVID-19 and is in isolation. He has had some abdominal pains in the past and cough induced with eating. ALLERGIES: None known. SURGERIES: Prostatectomy. SYSTEM REVIEW: HEAD, EYES, EARS, NOSE, AND THROAT: Vision and hearing is good. PULMONARY: No history of asthma or TB. There is some dyspnea on exertion. CARDIAC: No angina, OR, or palpitations. GASTROINTESTINAL: See history of present illness. GENITOURINARY: No dysuria, hematuria, or kidney stones. No difficulty initiating streaming urine. MUSCULOSKELETAL: No swollen joints. NEUROLOGIC: No prior history of CVA or seizures. PHYSICAL EXAMINATION: GENERAL: Patient is lying in bed. VITAL SIGNS: Temperature 99, pulse 61, respirations 20, blood pressure 149/77. HEAD, EYES, EARS, NOSE, AND THROAT: Oral mucosa is moist. Sclerae are nonicteric. NECK: No adenopathy. LUNGS: No rales or rhonchi are heard. HEART: Rhythm is regular. No murmur or gallop. ABDOMEN: Soft without organomegaly. EXTREMITIES: No edema. PERTINENT LABORATORY DATA: On admission 09/17/2019, BUN 18, his creatinine is 1.8, elevated. The CK is 457. Electrolytes normal. Troponin 0.020. Albumin low at 3.3. AST 90, ALT is 98. On 09/18/2019, BUN 17, creatinine 1.5, glucose 166. Ferritin elevated at 967. His urinalysis shows 2+ protein, 5 to 10 red cells, and 0 to 2 white cells per high-power field. IMPRESSION: 1. Acute kidney injury, likely from dehydration 2. COVID-19 positive and possible acute kidney injury due to COVID-19. 3. Proteinuria, nonspecific likely due to acute illness. 4. Possible GI bleed. 5. Elevated liver enzymes, likely due to COVID-19. Other etiologies to be considered PLAN: Keep the patient adequately hydrated. We will follow up on his electrolytes and watch closely in view of comorbidities. Direction of the care for the COVID-[address] Valentino and other consultants. Dallas Ness M.D. DR: DEVONTE JOB#: [id number] CC:
[2019-09-18 20:00] VITALS: BP 146/76
[2019-09-19] VITALS: BP 118/68
[2019-09-19 04:00] VITALS: BP 148/74
[2019-09-19 07:27] LABS: HEMATOCRIT 40.5 % (42.0-52.0); HEMOGLOBIN 12.8 G/DL (14.2-18.0); MEAN CORPUSCULAR VOLUME 89 FL (80-99); PLATELET COUNT 271 K/UL (150-450); RED BLOOD COUNT 4.54 M/UL (4.70-6.10); RED CELL DISTRIBUTION WIDTH 12.9 % (11.6-14.8); WHITE BLOOD COUNT 10.8 K/UL (4.8-10.8)
[2019-09-19 08:00] VITALS: BP 134/67
[2019-09-19 08:10] LABS: ALANINE AMINOTRANSFERASE 114 U/L (12-78); ALBUMIN 2.6 G/DL (3.4-5.0); ALBUMIN/GLOBULIN RATIO 0.6 (1.0-2.7); ALKALINE PHOSPHATASE 67 U/L (46-116); ANION GAP 12 mmol/L (5-15); ASPARTATE AMINO TRANSFERASE 77 U/L (15-37); BILIRUBIN,TOTAL 0.3 MG/DL (0.2-1.0); BLOOD UREA NITROGEN 14 mg/dL (7-18); CALCIUM 8.3 MG/DL (8.5-10.1); CARBON DIOXIDE 23 MMOL/L (21-32); CHLORIDE 102 MMOL/L (98-107); CREATININE 1.7 MG/DL (0.55-1.30); POTASSIUM 4.3 MMOL/L (3.5-5.1); SODIUM 136 MMOL/L (136-145)
--- NOTE | 2019-09-19 08:24 | Pulmonology Progress Note ---
Subjective Allergies: Coded Allergies: No Known Allergies (Unverified , 09/17/19) Subjective on isolation no dizziness, no further syncopal episodes HH stable no further melanotic stools tolerates CL diet Objective Last 24 Hour Vital Signs Date Time Temp Pulse Resp B/P (MAP) Pulse Ox O2 Delivery O2 Flow Rate FiO2 09/19/19 06:00 89 88 99 09/19/19 04:00 99.0 78 18 148/74 (98) 96 09/19/19 04:00 60 09/19/19 00:00 99.0 63 20 118/68 (85) 96 09/19/19 00:00 54 09/18/19 22:00 85 86 100 09/18/19 21:24 99.0 09/18/19 21:00 Room Air 09/18/19 20:00 100.0 77 18 146/76 (99) 96 09/18/19 20:00 83 09/18/19 16:00 75 09/18/19 16:00 100.2 91 18 149/86 (107) 98 09/18/19 14:00 87 87 101 09/18/19 12:00 71 09/18/19 12:00 99.0 61 20 149/77 (101) 95 09/18/19 09:46 58 137/75 09/18/19 08:21 Room Air Intake and Output 09/18/19 09/19/19 19:00 07:00 Intake Total 2120 ml Output Total 700 ml Balance 1420 ml Intake Oral 800 ml IV Total 1320 ml Output Urine Total 700 ml # Voids 1 Objective General Appearance: WD/WN - in NAD , alert Lines, tubes and drains: peripheral HEENT: normocephalic, atraumatic, anicteric, mucous membranes moist Neck: supple Respiratory/Chest: lungs clear, no respiratory distress, no accessory muscle use Cardiovascular/Chest: normal rate Abdomen: normal bowel sounds, non tender, soft Extremities: normal range of motion, no calf tenderness, normal capillary refill, no edema Skin Exam: warm/dry 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, no motor/sensory deficits, alert, oriented x 3, responsive Musculoskeletal: normal muscle bulk Microbiology Date/Time Source Procedure Growth Status 09/17/19 17:30 Blood Blood Culture - Preliminary NO GROWTH AFTER 24 HOURS Resulted 09/17/19 17:00 Blood Blood Culture - Preliminary NO GROWTH AFTER 24 HOURS Resulted 09/17/19 17:05 Nasopharynx SARS-CoV-2 RdRp Gene Assay - Final Complete Laboratory Tests 09/19/19 06:53: White Blood Count 10.8#, Red Blood Count 4.54L, Hemoglobin 12.8L, Hematocrit 40.5L, Mean Corpuscular Volume 89, Mean Corpuscular Hemoglobin 28.2, Mean Corpuscular Hemoglobin Concent 31.6L, Red Cell Distribution Width 12.9, Platelet Count 271, Mean Platelet Volume 6.7, Neutrophils (%) (Auto) , Lymphocytes (%) (Auto) , Monocytes (%) (Auto) , Eosinophils (%) (Auto) , Basophils (%) (Auto) , Neutrophils % (Manual) [Pending], Lymphocytes % (Manual) [Pending], Platelet Estimate [Pending], Platelet Morphology [Pending], Sodium Level 136, Potassium Level 4.3, Chloride Level 102, Carbon Dioxide Level 23, Anion Gap 12, Blood Urea Nitrogen 14, Creatinine 1.7H, Estimat Glomerular Filtration Rate 48.5, Glucose Level 136H, Calcium Level 8.3L, Total Bilirubin 0.3, Aspartate Amino Transf (AST/SGOT) 77H, Alanine Aminotransferase (ALT/SGPT) 114H, Alkaline Phosphatase 67, Total Protein 6.8, Albumin 2.6L, Globulin 4.2, Albumin/Globulin Ratio 0.6L, Hepatitis A IgM Antibody [Pending], Hepatitis B Surface Antigen [Pending], Hepatitis B Core IgM Antibody [Pending], Hepatitis C Antibody [Pending] Current Medications Medications (Trade) Dose Ordered Sig/Dae Route PRN Reason Start Time Stop Time Status Last Admin Dose Admin Acetaminophen (Tylenol) 650 mg Q4H PRN ORAL Mild Pain (Pain Scale 1-3) 09/17/19 23:30 10/17/19 23:29 09/18/19 20:54 Acetaminophen (Tylenol) 650 mg Q4H PRN RECTAL Mild Pain (Pain Scale 1-3) 09/17/19 23:30 10/17/19 23:29 Albuterol Sulfate (Proventil MDI) 2 puff Q4H PRN INH Shortness of Breath 09/18/19 09:45 12/17/19 09:44 Amlodipine Besylate (Norvasc) 5 mg DAILY ORAL 09/18/19 09:00 10/18/19 08:59 09/18/19 09:46 Ascorbic Acid (Vitamin C) 500 mg TWICE A DAY ORAL 09/18/19 18:00 10/18/19 17:59 09/18/19 18:11 Dextrose/ Electrolytes 1,000 ml @ 120 mls/hr Q8H20M IV 09/17/19 23:30 10/17/19 23:29 09/18/19 23:43 Ondansetron HCl (Zofran) 4 mg Q4H PRN IVP Nausea & Vomiting 09/17/19 23:30 10/17/19 23:29 Pantoprazole (Protonix) 40 mg EVERY 12 HOURS IV 09/18/19 09:00 10/18/19 08:59 09/18/19 20:53 Zinc Sulfate (Zinc Sulfate) 220 mg DAILY ORAL 09/19/19 09:00 12/18/19 08:59 Assessment/Plan Assessment/Plan ASSESSMENT COVID-19 PNA possible GI bleeding /melanotic stools Syncope ROBERT Hx of hypertension Transaminitis PLAN OF CARE tele isolation O2 titrate to keep sat above 92%, MDI fup with regular COVID testing empiric abx : Azithromycin and ceftriaxone added Zinc and vit C fup with CXR hold on steroid for now, given GI bleeding ID consult pending, consider Remdesivir EUA Venous Duplex BLE SCD given GI bleeding , D dimerr stable monitor inflammatory markers, elevated ferritin 967, LDH 359, CRP 1.1 IL-6 pending serial troponin x 2 NGT, ECG no acute ischemic changes, r/o for acute DE cardio eval appreciated ECHO woth pEF 60%, no evidence of WMA BP management with CCB, stable orthostatic VS no evidence of orthostasis, started after already hydrated syncope with diff plausible etiologies, including COVID, orthostatic changes, dehydration, GI bleed per cardio syncope likely due to orthostasis in the setting of COVID pneumonia and decreased oral intake need to rule out bradyarrhythmia as it appeared that pt has some degree of sinus node disease. continue tele Protonix IV bid GI eval appreciated trend LFT per GI hold on endoscopy for now given + CoVID and stable HH advance diet as per GI stool OB x 2 pending generous IVF monitor renal parameters, lytes, avoid nephrotoxics, nephro eval appreciated creat 1.7 today pt wants to go home, lives alone, understands that he needs to be in isolation case discussed and evaluated by supervising physician Michelle Reed NP Sep 19, 2019 08:24
[2019-09-19] MEDS: D5 1/2NS w/KCl 20mEq 1,000 ML IV SCH ×2 (08:45→17:10)
[2019-09-19] MEDS: Pantoprazole Inj IV SCH ×2 (08:45→22:30)
[2019-09-19] MEDS: Zinc Sulfate 220mg ORAL SCH (08:45)
[2019-09-19] MEDS: Ascorbic Acid 500mg tab ORAL SCH ×2 (09:09→18:00)
--- NOTE | 2019-09-19 10:42 | General Progress Note ---
Assessment/Plan Problem List: (1) Black stools ICD Codes: K92.1 - Melena SNOMED: 284538693 (2) Syncope ICD Codes: R55 - Syncope and collapse SNOMED: 043525619 Qualifiers: Qualified Codes: R55 - Syncope and collapse (3) Pneumonia due to COVID-19 virus ICD Codes: U07.1 - COVID-19; J12.89 - Other viral pneumonia SNOMED: 019884675, [id number] Assessment/Plan: stable H&H above 12 pending stool ob ppi bid EGD on hold given COVID + and stable H&H advance diet Subjective ROS Limited/Unobtainable: Yes Allergies: Coded Allergies: No Known Allergies (Unverified , 09/17/19) Objective Last 24 Hour Vital Signs Date Time Temp Pulse Resp B/P (MAP) Pulse Ox O2 Delivery O2 Flow Rate FiO2 09/19/19 09:16 99.1 09/19/19 09:00 Room Air 09/19/19 08:45 89 134/67 09/19/19 08:00 101.5 89 20 134/67 (89) 94 09/19/19 08:00 79 09/19/19 06:00 89 88 99 09/19/19 04:00 99.0 78 18 148/74 (98) 96 09/19/19 04:00 60 09/19/19 00:00 99.0 63 20 118/68 (85) 96 09/19/19 00:00 54 09/18/19 22:00 85 86 100 09/18/19 21:00 Room Air 09/18/19 20:00 100.0 77 18 146/76 (99) 96 09/18/19 20:00 83 09/18/19 16:00 75 09/18/19 16:00 100.2 91 18 149/86 (107) 98 09/18/19 14:00 87 87 101 09/18/19 12:00 71 09/18/19 12:00 99.0 61 20 149/77 (101) 95 Intake and Output 09/18/19 09/19/19 19:00 07:00 Intake Total 2120 ml Output Total 700 ml Balance 1420 ml Intake Oral 800 ml IV Total 1320 ml Output Urine Total 700 ml # Voids 1 Laboratory Tests 09/19/19 06:53: White Blood Count 10.8#, Red Blood Count 4.54L, Hemoglobin 12.8L, Hematocrit 40.5L, Mean Corpuscular Volume 89, Mean Corpuscular Hemoglobin 28.2, Mean Corpuscular Hemoglobin Concent 31.6L, Red Cell Distribution Width 12.9, Platelet Count 271, Mean Platelet Volume 6.7, Neutrophils (%) (Auto) , Lymphocytes (%) (Auto) , Monocytes (%) (Auto) , Eosinophils (%) (Auto) , Basophils (%) (Auto) , Differential Total Cells Counted 100, Neutrophils % ( Manual) 85H, Lymphocytes % (Manual) 8L, Monocytes % (Manual) 7, Eosinophils % ( Manual) 0, Basophils % (Manual) 0, Band Neutrophils 0, Platelet Estimate Adequate, Platelet Morphology Normal, Red Blood Cell Morphology Normal, Sodium Level 136, Potassium Level 4.3, Chloride Level 102, Carbon Dioxide Level 23, Anion Gap 12, Blood Urea Nitrogen 14, Creatinine 1.7H, Estimat Glomerular Filtration Rate 48.5, Glucose Level 136H, Calcium Level 8.3L, Total Bilirubin 0.3, Aspartate Amino Transf (AST/SGOT) 77H, Alanine Aminotransferase (ALT/SGPT) 114H, Alkaline Phosphatase 67, Total Protein 6.8, Albumin 2.6L, Globulin 4.2, Albumin/Globulin Ratio 0.6L, Hepatitis A IgM Antibody [Pending], Hepatitis B Surface Antigen [Pending], Hepatitis B Core IgM Antibody [Pending], Hepatitis C Antibody [Pending] Height (Feet): 6 Height (Inches): 3.00 Weight (Pounds): 222 General Appearance: no apparent distress EENT: normal ENT inspection Neck: supple Cardiovascular: normal rate Respiratory/Chest: decreased breath sounds Abdomen: normal bowel sounds, non tender, soft Extremities: non-tender Scott Owens MD Sep 19, 2019 10:42
[2019-09-19 12:00] VITALS: BP 115/72
--- NOTE | 2019-09-19 12:24 | Consultation ---
History of Present Illness General Date patient seen: Sep 19, 2019 Chief Complaint: Generalized Weakness Present Illness HPI 68 y/o M with hx of BPH, prostatectomy, HTN presented to ED on 09/17/19 with 10 days of generalized weakness, nausea/vomiting, dark stools and an episode of near syncope. Rapid covid test is positive. Denied chest pain, abd pain, cough, sore throat, f/c, join pains, headache upon admission. He feels a lot better now. Denies SOB, cough. 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 He has no history of tobacco , alcohol or drug use. Fhx: non contributory Review of Systems All Other Systems: negative except mentioned in HPI Physical Exam Physical Exam Narrative HEENT: Normocephalic, atraumatic. Pupils are equal, round, and reactive to light. Sclerae anicteric. Oral mucosa are moist. NECK: Supple. There is no jugular venous distention. No adenopathy. Carotid pulses are 2+ bilateral without bruits. LUNGS: Clear to auscultation bilaterally. HEART: Regular rate and rhythm. S1, S2 with no murmur or S3. ABDOMEN: Soft, nondistended, nontender. No palpable mass. EXTREMITIES: No cyanosis, clubbing, or edema. Distal lower extremity pulses are intact. SKIN: No rashes or lesions. Normal turgor. Last 24 Hour Vital Signs Date Time Temp Pulse Resp B/P (MAP) Pulse Ox O2 Delivery O2 Flow Rate FiO2 09/19/19 09:16 99.1 09/19/19 09:00 Room Air 09/19/19 08:45 89 134/67 09/19/19 08:00 101.5 89 20 134/67 (89) 94 09/19/19 08:00 79 09/19/19 06:00 89 88 99 09/19/19 04:00 99.0 78 18 148/74 (98) 96 09/19/19 04:00 60 09/19/19 00:00 99.0 63 20 118/68 (85) 96 09/19/19 00:00 54 09/18/19 22:00 85 86 100 09/18/19 21:00 Room Air 09/18/19 20:00 100.0 77 18 146/76 (99) 96 09/18/19 20:00 83 09/18/19 16:00 75 09/18/19 16:00 100.2 91 18 149/86 (107) 98 09/18/19 14:00 87 87 101 09/18/19 12:00 71 09/18/19 12:00 99.0 61 20 149/77 (101) 95 Intake and Output 09/18/19 09/19/19 19:00 07:00 Intake Total 2120 ml Output Total 700 ml Balance 1420 ml Intake Oral 800 ml IV Total 1320 ml Output Urine Total 700 ml # Voids 1 Laboratory Tests Test 09/19/19 06:53 White Blood Count 10.8 K/UL (4.8-10.8) # Red Blood Count 4.54 M/UL (4.70-6.10) L Hemoglobin 12.8 G/DL (14.2-18.0) L Hematocrit 40.5 % (42.0-52.0) L Mean Corpuscular Volume 89 FL (80-99) Mean Corpuscular Hemoglobin 28.2 PG (27.0-31.0) Mean Corpuscular Hemoglobin Concent 31.6 G/DL (32.0-36.0) L Red Cell Distribution Width 12.9 % (11.6-14.8) Platelet Count 271 K/UL (150-450) Mean Platelet Volume 6.7 FL (6.5-10.1) Neutrophils (%) (Auto) % (45.0-75.0) Lymphocytes (%) (Auto) % (20.0-45.0) Monocytes (%) (Auto) % (1.0-10.0) Eosinophils (%) (Auto) % (0.0-3.0) Basophils (%) (Auto) % (0.0-2.0) Differential Total Cells Counted 100 Neutrophils % (Manual) 85 % (45-75) H Lymphocytes % (Manual) 8 % (20-45) L Monocytes % (Manual) 7 % (1-10) Eosinophils % (Manual) 0 % (0-3) Basophils % (Manual) 0 % (0-2) Band Neutrophils 0 % (0-8) Platelet Estimate Adequate Platelet Morphology Normal Red Blood Cell Morphology Normal Sodium Level 136 MMOL/L (136-145) Potassium Level 4.3 MMOL/L (3.5-5.1) Chloride Level 102 MMOL/L (98-107) Carbon Dioxide Level 23 MMOL/L (21-32) Anion Gap 12 mmol/L (5-15) Blood Urea Nitrogen 14 mg/dL (7-18) Creatinine 1.7 MG/DL (0.55-1.30) H Estimat Glomerular Filtration Rate 48.5 mL/min (>60) Glucose Level 136 MG/DL (74-106) H Calcium Level 8.3 MG/DL (8.5-10.1) L Total Bilirubin 0.3 MG/DL (0.2-1.0) Aspartate Amino Transf (AST/SGOT) 77 U/L (15-37) H Alanine Aminotransferase (ALT/SGPT) 114 U/L (12-78) H Alkaline Phosphatase 67 U/L (46-116) Total Protein 6.8 G/DL (6.4-8.2) Albumin 2.6 G/DL (3.4-5.0) L Globulin 4.2 g/dL Albumin/Globulin Ratio 0.6 (1.0-2.7) L Hepatitis A IgM Antibody Pending Hepatitis B Surface Antigen Pending Hepatitis B Core IgM Antibody Pending Hepatitis C Antibody Pending Height (Feet): 6 Height (Inches): 3.00 Weight (Pounds): 222 Medications Current Medications Medications (Trade) Dose Ordered Sig/Dae Route PRN Reason Start Time Stop Time Status Last Admin Dose Admin Acetaminophen (Tylenol) 650 mg Q4H PRN ORAL Mild Pain (Pain Scale 1-3) 09/17/19 23:30 10/17/19 23:29 09/19/19 08:46 Acetaminophen (Tylenol) 650 mg Q4H PRN RECTAL Mild Pain (Pain Scale 1-3) 09/17/19 23:30 10/17/19 23:29 Albuterol Sulfate (Proventil MDI) 2 puff Q4H PRN INH Shortness of Breath 09/18/19 09:45 12/17/19 09:44 Amlodipine Besylate (Norvasc) 5 mg DAILY ORAL 09/18/19 09:00 10/18/19 08:59 09/19/19 08:45 Ascorbic Acid (Vitamin C) 500 mg TWICE A DAY ORAL 09/18/19 18:00 10/18/19 17:59 09/19/19 09:09 Dextrose/ Electrolytes 1,000 ml @ 120 mls/hr Q8H20M IV 09/17/19 23:30 10/17/19 23:29 09/19/19 08:45 Ondansetron HCl (Zofran) 4 mg Q4H PRN IVP Nausea & Vomiting 09/17/19 23:30 10/17/19 23:29 Pantoprazole (Protonix) 40 mg EVERY 12 HOURS IV 09/18/19 09:00 10/18/19 08:59 09/19/19 08:45 Zinc Sulfate (Zinc Sulfate) 220 mg DAILY ORAL 09/19/19 09:00 12/18/19 08:59 09/19/19 08:45 Assessment/Plan Assessment/Plan: Abx: Ceftriaxone x1 09/16 Azithromycin x1 09/16 Assessment: Pneumonia- 2ry to COVID19- on RA -GI manifestation of covid (gastrotenteritis) -09/16 CXR: Airspace opacities seen within the mid to lower lungs likely inflammatory or infectious. -09/16 rapid covid neg -D-dimer 0.48 (09/16) -CRp 1.1 (09/07) -LDH 392 (09/16), 359 (09/17) -Ferritin 992 (09/16), 967 (09/17) Fever No leukocytosis Lymphopenia -u./a neg -09/16 BCx neg ROBERT Elevated LFTs BPH prostatectomy HTN Plan: -Continue Ceftriaxone and azithromycin #2 -Will consider remdesevir and decadron if Spo2 <94% at RA -f/u cx -Monitor CBC/CMP, temperatures -COVID19 isolation and testing -Monitor CXR and inflammatory markers Thank you for consulting [facility]. Will continue to follow along with you. Discussed wit Leona Hu M.D. Sep 19, 2019 12:24
--- NOTE | 2019-09-19 13:00 | Surgery Progress Note ---
Surgery Progress Note Subjective Additional Comments no acute events labs noted exam stable comfortable h/h stable Objective Last 24 Hour Vital Signs Date Time Temp Pulse Resp B/P (MAP) Pulse Ox O2 Delivery O2 Flow Rate FiO2 09/19/19 12:00 85 09/19/19 09:16 99.1 09/19/19 09:00 Room Air 09/19/19 08:45 89 134/67 09/19/19 08:00 101.5 89 20 134/67 (89) 94 09/19/19 08:00 79 09/19/19 06:00 89 88 99 09/19/19 04:00 99.0 78 18 148/74 (98) 96 09/19/19 04:00 60 09/19/19 00:00 99.0 63 20 118/68 (85) 96 09/19/19 00:00 54 09/18/19 22:00 85 86 100 09/18/19 21:00 Room Air 09/18/19 20:00 100.0 77 18 146/76 (99) 96 09/18/19 20:00 83 09/18/19 16:00 75 09/18/19 16:00 100.2 91 18 149/86 (107) 98 09/18/19 14:00 87 87 101 I&O Intake and Output 09/18/19 09/19/19 19:00 07:00 Intake Total 2120 ml Output Total 700 ml Balance 1420 ml Intake Oral 800 ml IV Total 1320 ml Output Urine Total 700 ml # Voids 1 Dressing: other Wound: other Drains: other Cardiovascular: RSR Respiratory: decreased breath sounds Abdomen: soft, non-tender, present bowel sounds Extremities: no tenderness, no cyanosis Laboratory Tests Test 09/19/19 06:53 09/19/19 12:40 White Blood Count 10.8 K/UL (4.8-10.8) # Red Blood Count 4.54 M/UL (4.70-6.10) L Hemoglobin 12.8 G/DL (14.2-18.0) L Hematocrit 40.5 % (42.0-52.0) L Mean Corpuscular Volume 89 FL (80-99) Mean Corpuscular Hemoglobin 28.2 PG (27.0-31.0) Mean Corpuscular Hemoglobin Concent 31.6 G/DL (32.0-36.0) L Red Cell Distribution Width 12.9 % (11.6-14.8) Platelet Count 271 K/UL (150-450) Mean Platelet Volume 6.7 FL (6.5-10.1) Neutrophils (%) (Auto) % (45.0-75.0) Lymphocytes (%) (Auto) % (20.0-45.0) Monocytes (%) (Auto) % (1.0-10.0) Eosinophils (%) (Auto) % (0.0-3.0) Basophils (%) (Auto) % (0.0-2.0) Differential Total Cells Counted 100 Neutrophils % (Manual) 85 % (45-75) H Lymphocytes % (Manual) 8 % (20-45) L Monocytes % (Manual) 7 % (1-10) Eosinophils % (Manual) 0 % (0-3) Basophils % (Manual) 0 % (0-2) Band Neutrophils 0 % (0-8) Platelet Estimate Adequate Platelet Morphology Normal Red Blood Cell Morphology Normal Sodium Level 136 MMOL/L (136-145) Potassium Level 4.3 MMOL/L (3.5-5.1) Chloride Level 102 MMOL/L (98-107) Carbon Dioxide Level 23 MMOL/L (21-32) Anion Gap 12 mmol/L (5-15) Blood Urea Nitrogen 14 mg/dL (7-18) Creatinine 1.7 MG/DL (0.55-1.30) H Estimat Glomerular Filtration Rate 48.5 mL/min (>60) Glucose Level 136 MG/DL (74-106) H Calcium Level 8.3 MG/DL (8.5-10.1) L Total Bilirubin 0.3 MG/DL (0.2-1.0) Aspartate Amino Transf (AST/SGOT) 77 U/L (15-37) H Alanine Aminotransferase (ALT/SGPT) 114 U/L (12-78) H Alkaline Phosphatase 67 U/L (46-116) Total Protein 6.8 G/DL (6.4-8.2) Albumin 2.6 G/DL (3.4-5.0) L Globulin 4.2 g/dL Albumin/Globulin Ratio 0.6 (1.0-2.7) L Hepatitis A IgM Antibody Pending Hepatitis B Surface Antigen Pending Hepatitis B Core IgM Antibody Pending Hepatitis C Antibody Pending Arterial Blood pH 7.415 (7.350-7.450) Arterial Blood Partial Pressure CO2 31.4 mmHg (35.0-45.0) L Arterial Blood Partial Pressure O2 89.3 mmHg (75.0-100.0) Arterial Blood HCO3 19.7 mmol/L (22.0-26.0) L Arterial Blood Oxygen Saturation 96.6 % (95-100) Arterial Blood Base Excess -3.8 (-2-2) L Mick Test Positive Plan Problems: (1) GI bleed Assessment & Plan: 68-year-old male with recent changes in stool consistency and color. Melena. Has been identified approximately 2 weeks now. No bright red blood noted. No active bleeding noted. Anemia but hemoglobin stable. Has not had a colonoscopy in the past or an endoscopy prior. Currently COVID positive. GI input noted and appreciated. No active bleeding will hold on endoscopy during positive viral effect. We will plan for treating COVID related pneumonia and plan for potential elective colonoscopy endoscopy. In the meantime if active bleeding noted or worsening condition may consider with precautions. No acute surgical intervention planned. We will monitor with serial exams Trend labs Okay for diet as tolerated We will monitor stool Thank you for let me participate in patient's care will follow with recommendations (2) Lab test positive for detection of COVID-19 virus (3) Black stools (4) Pneumonia due to COVID-19 virus Assessment & Plan: Lungs: Airspace opacities seen within the mid to lower lungs likely inflammatory or infectious. Pleural space: Unremarkable. Heart: Heart is enlarged. Mediastinum: Unremarkable. Bones/joints: Unremarkable. IMPRESSION: Airspace opacities seen within the mid to lower lungs likely inflammatory or infectious. (5) Syncope Kwasi Epstein Sep 19, 2019 13:00
[2019-09-19] MEDS: Azithromycin 250mg tab ORAL SCH (13:22)
[2019-09-19] MEDS: cefTRIAXone 1 GM in D5W 55 ML IVPB SCH (13:23)
--- NOTE | 2019-09-19 15:05 | Nephrology Progress Note ---
Assessment/Plan Problem List: (1) ROBERT (acute kidney injury) (2) Pneumonia due to COVID-19 virus (3) Syncope (4) Black stools (5) CKD (chronic kidney disease) stage 3, GFR 30-59 ml/min Plan continue iv hydration , comfort measures Subjective Constitutional: Reports: weakness HEENT: Reports: no symptoms Genitourinary: Reports: no symptoms Neurologic/Psychiatric: Reports: no symptoms Objective Objective Last 24 Hour Vital Signs Date Time Temp Pulse Resp B/P (MAP) Pulse Ox O2 Delivery O2 Flow Rate FiO2 09/19/19 14:00 86 88 93 09/19/19 12:00 85 09/19/19 12:00 100.0 86 20 115/72 (86) 95 09/19/19 09:16 99.1 09/19/19 09:00 Room Air 09/19/19 08:45 89 134/67 09/19/19 08:00 101.5 89 20 134/67 (89) 94 09/19/19 08:00 79 09/19/19 06:00 89 88 99 09/19/19 04:00 99.0 78 18 148/74 (98) 96 09/19/19 04:00 60 09/19/19 00:00 99.0 63 20 118/68 (85) 96 09/19/19 00:00 54 09/18/19 22:00 85 86 100 09/18/19 21:00 Room Air 09/18/19 20:00 100.0 77 18 146/76 (99) 96 09/18/19 20:00 83 09/18/19 16:00 75 09/18/19 16:00 100.2 91 18 149/86 (107) 98 Intake and Output 09/18/19 09/19/19 19:00 07:00 Intake Total 2120 ml Output Total 700 ml Balance 1420 ml Intake Oral 800 ml IV Total 1320 ml Output Urine Total 700 ml # Voids 1 Laboratory Tests 09/19/19 06:53: White Blood Count 10.8#, Red Blood Count 4.54L, Hemoglobin 12.8L, Hematocrit 40.5L, Mean Corpuscular Volume 89, Mean Corpuscular Hemoglobin 28.2, Mean Corpuscular Hemoglobin Concent 31.6L, Red Cell Distribution Width 12.9, Platelet Count 271, Mean Platelet Volume 6.7, Neutrophils (%) (Auto) , Lymphocytes (%) (Auto) , Monocytes (%) (Auto) , Eosinophils (%) (Auto) , Basophils (%) (Auto) , Differential Total Cells Counted 100, Neutrophils % ( Manual) 85H, Lymphocytes % (Manual) 8L, Monocytes % (Manual) 7, Eosinophils % ( Manual) 0, Basophils % (Manual) 0, Band Neutrophils 0, Platelet Estimate Adequate, Platelet Morphology Normal, Red Blood Cell Morphology Normal, Sodium Level 136, Potassium Level 4.3, Chloride Level 102, Carbon Dioxide Level 23, Anion Gap 12, Blood Urea Nitrogen 14, Creatinine 1.7H, Estimat Glomerular Filtration Rate 48.5, Glucose Level 136H, Calcium Level 8.3L, Total Bilirubin 0.3, Aspartate Amino Transf (AST/SGOT) 77H, Alanine Aminotransferase (ALT/SGPT) 114H, Alkaline Phosphatase 67, Total Protein 6.8, Albumin 2.6L, Globulin 4.2, Albumin/Globulin Ratio 0.6L, Hepatitis A IgM Antibody [Pending], Hepatitis B Surface Antigen [Pending], Hepatitis B Core IgM Antibody [Pending], Hepatitis C Antibody [Pending] 09/19/19 12:40: Arterial Blood pH 7.415, Arterial Blood Partial Pressure CO2 31.4L, Arterial Blood Partial Pressure O2 89.3, Arterial Blood HCO3 19.7L, Arterial Blood Oxygen Saturation 96.6, Arterial Blood Base Excess -3.8L, Mick Test Positive Height (Feet): 6 Height (Inches): 3.00 Weight (Pounds): 222 General Appearance: no apparent distress EENT: normal ENT inspection Neck: normal alignment Cardiovascular: normal rate, regular rhythm Respiratory/Chest: lungs clear, normal breath sounds Abdomen: non tender 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
--- NOTE | 2019-09-19 15:16 | Diagnostic Imaging Report ---
Indication: Cough Technique: One view of the chest Comparison: 09/17/2019 Findings: Again demonstrated are bilateral interstitial and airspace opacities. The heart is borderline enlarged. The pleural spaces are grossly clear. Findings are unchanged Impression: Unchanged, over 2 days, findings as above.
[2019-09-19 16:00] VITALS: BP 120/77
--- NOTE | 2019-09-19 19:13 | Cardiology Progress Note ---
Assessment/Plan Assessment/Plan syncope renal insuf abn lfts melanotic stool covid 19 pneumonia sinus zoey at admission tele personally reviewed ekg personally reviewed hgb not sig elevated remain febrile on abx sinus zoey nto been periss tent Subjective Subjective in isolation no dizziness, no further syncopal episodes HH stable no further melanotic stools tolerates CL diet Objective Last 24 Hour Vital Signs Date Time Temp Pulse Resp B/P (MAP) Pulse Ox O2 Delivery O2 Flow Rate FiO2 09/19/19 16:00 99.7 87 20 120/77 (91) 95 09/19/19 16:00 61 09/19/19 14:00 86 88 93 09/19/19 12:00 85 09/19/19 12:00 100.0 86 20 115/72 (86) 95 09/19/19 09:16 99.1 09/19/19 09:00 Room Air 09/19/19 08:45 89 134/67 09/19/19 08:00 101.5 89 20 134/67 (89) 94 09/19/19 08:00 79 09/19/19 06:00 89 88 99 09/19/19 04:00 99.0 78 18 148/74 (98) 96 09/19/19 04:00 60 09/19/19 00:00 99.0 63 20 118/68 (85) 96 09/19/19 00:00 54 09/18/19 22:00 85 86 100 09/18/19 21:00 Room Air 09/18/19 20:00 100.0 77 18 146/76 (99) 96 09/18/19 20:00 83 Intake and Output 09/18/19 09/19/19 19:00 07:00 Intake Total 2120 ml Output Total 700 ml Balance 1420 ml Intake Oral 800 ml IV Total 1320 ml Output Urine Total 700 ml # Voids 1 Laboratory Tests Test 09/19/19 06:53 09/19/19 12:40 White Blood Count 10.8 K/UL (4.8-10.8) # Red Blood Count 4.54 M/UL (4.70-6.10) L Hemoglobin 12.8 G/DL (14.2-18.0) L Hematocrit 40.5 % (42.0-52.0) L Mean Corpuscular Volume 89 FL (80-99) Mean Corpuscular Hemoglobin 28.2 PG (27.0-31.0) Mean Corpuscular Hemoglobin Concent 31.6 G/DL (32.0-36.0) L Red Cell Distribution Width 12.9 % (11.6-14.8) Platelet Count 271 K/UL (150-450) Mean Platelet Volume 6.7 FL (6.5-10.1) Neutrophils (%) (Auto) % (45.0-75.0) Lymphocytes (%) (Auto) % (20.0-45.0) Monocytes (%) (Auto) % (1.0-10.0) Eosinophils (%) (Auto) % (0.0-3.0) Basophils (%) (Auto) % (0.0-2.0) Differential Total Cells Counted 100 Neutrophils % (Manual) 85 % (45-75) H Lymphocytes % (Manual) 8 % (20-45) L Monocytes % (Manual) 7 % (1-10) Eosinophils % (Manual) 0 % (0-3) Basophils % (Manual) 0 % (0-2) Band Neutrophils 0 % (0-8) Platelet Estimate Adequate Platelet Morphology Normal Red Blood Cell Morphology Normal Sodium Level 136 MMOL/L (136-145) Potassium Level 4.3 MMOL/L (3.5-5.1) Chloride Level 102 MMOL/L (98-107) Carbon Dioxide Level 23 MMOL/L (21-32) Anion Gap 12 mmol/L (5-15) Blood Urea Nitrogen 14 mg/dL (7-18) Creatinine 1.7 MG/DL (0.55-1.30) H Estimat Glomerular Filtration Rate 48.5 mL/min (>60) Glucose Level 136 MG/DL (74-106) H Calcium Level 8.3 MG/DL (8.5-10.1) L Total Bilirubin 0.3 MG/DL (0.2-1.0) Aspartate Amino Transf (AST/SGOT) 77 U/L (15-37) H Alanine Aminotransferase (ALT/SGPT) 114 U/L (12-78) H Alkaline Phosphatase 67 U/L (46-116) Total Protein 6.8 G/DL (6.4-8.2) Albumin 2.6 G/DL (3.4-5.0) L Globulin 4.2 g/dL Albumin/Globulin Ratio 0.6 (1.0-2.7) L Hepatitis A IgM Antibody Pending Hepatitis B Surface Antigen Pending Hepatitis B Core IgM Antibody Pending Hepatitis C Antibody Pending Arterial Blood pH 7.415 (7.350-7.450) Arterial Blood Partial Pressure CO2 31.4 mmHg (35.0-45.0) L Arterial Blood Partial Pressure O2 89.3 mmHg (75.0-100.0) Arterial Blood HCO3 19.7 mmol/L (22.0-26.0) L Arterial Blood Oxygen Saturation 96.6 % (95-100) Arterial Blood Base Excess -3.8 (-2-2) L Mick Test Positive Microbiology Date/Time Source Procedure Growth Status 09/17/19 17:30 Blood Blood Culture - Preliminary NO GROWTH AFTER 24 HOURS Resulted 09/17/19 17:00 Blood Blood Culture - Preliminary NO GROWTH AFTER 24 HOURS Resulted 09/17/19 17:05 Nasopharynx SARS-CoV-2 RdRp Gene Assay - Final Complete Objective pt in isolation for covid per pulm pa Respiratory/Chest: lungs clear, no respiratory distress, no accessory muscle use Cardiovascular/Chest: normal rate Abdomen: normal bowel sounds, non tender, soft Extremities: normal range of motion, no calf tenderness, normal capillary refill, no giovanny Miguel Dunn MD Sep 19, 2019 19:13
[2019-09-19 20:00] VITALS: BP 120/72
[2019-09-20] VITALS: BP 136/72
[2019-09-20] MEDS: D5 1/2NS w/KCl 20mEq 1,000 ML IV SCH ×2 (01:30→06:59)
[2019-09-20 04:00] VITALS: BP 136/80
[2019-09-20 06:54] LABS: BASOPHILS % (AUTO) 1.3 % (0.0-2.0); EOSINOPHILS % (AUTO) 0.1 % (0.0-3.0); HEMATOCRIT 38.4 % (42.0-52.0); HEMOGLOBIN 12.1 G/DL (14.2-18.0); LYMPHOCYTES % (AUTO) 8.1 % (20.0-45.0); MEAN CORPUSCULAR VOLUME 89 FL (80-99); MONOCYTES % (AUTO) 7.4 % (1.0-10.0); NEUTROPHILS % (AUTO) 83.1 % (45.0-75.0); PLATELET COUNT 273 K/UL (150-450); RED BLOOD COUNT 4.33 M/UL (4.70-6.10); RED CELL DISTRIBUTION WIDTH 12.8 % (11.6-14.8); WHITE BLOOD COUNT 7.1 K/UL (4.8-10.8)
[2019-09-20 07:35] LABS: ALANINE AMINOTRANSFERASE 104 U/L (12-78); ALBUMIN 2.4 G/DL (3.4-5.0); ALBUMIN/GLOBULIN RATIO 0.6 (1.0-2.7); ALKALINE PHOSPHATASE 66 U/L (46-116); ANION GAP 10 mmol/L (5-15); ASPARTATE AMINO TRANSFERASE 64 U/L (15-37); BILIRUBIN,TOTAL 0.3 MG/DL (0.2-1.0); BLOOD UREA NITROGEN 11 mg/dL (7-18); CALCIUM 7.8 MG/DL (8.5-10.1); CARBON DIOXIDE 24 MMOL/L (21-32); CHLORIDE 105 MMOL/L (98-107); CREATININE 1.5 MG/DL (0.55-1.30); POTASSIUM 4.2 MMOL/L (3.5-5.1); SODIUM 139 MMOL/L (136-145)
[2019-09-20 07:38] LABS: BILIRUBIN,DIRECT < 0.1 MG/DL (0.0-0.3); FERRITIN 1210 NG/ML (8-388)
[2019-09-20 08:00] VITALS: BP 124/61
[2019-09-20] MEDS: Ascorbic Acid 500mg tab ORAL SCH ×2 (08:27→17:47)
[2019-09-20] MEDS: Pantoprazole Inj IV SCH ×2 (08:27→21:00)
[2019-09-20] MEDS: Azithromycin 250mg tab ORAL SCH (08:28)
[2019-09-20] MEDS: Zinc Sulfate 220mg ORAL SCH (08:28)
--- NOTE | 2019-09-20 09:11 | General Progress Note ---
Assessment/Plan Problem List: (1) Black stools ICD Codes: K92.1 - Melena SNOMED: 994832970 (2) Syncope ICD Codes: R55 - Syncope and collapse SNOMED: 549687028 Qualifiers: Qualified Codes: R55 - Syncope and collapse (3) Pneumonia due to COVID-19 virus ICD Codes: U07.1 - COVID-19; J12.89 - Other viral pneumonia SNOMED: [id number], [id number] Assessment/Plan: stable H&H above 12 pending stool ob ppi bid EGD on hold given COVID + and stable H&H Subjective ROS Limited/Unobtainable: Yes Allergies: Coded Allergies: No Known Allergies (Unverified , 09/17/19) Objective Last 24 Hour Vital Signs Date Time Temp Pulse Resp B/P (MAP) Pulse Ox O2 Delivery O2 Flow Rate FiO2 09/20/19 09:00 Room Air 09/20/19 08:28 82 124/61 09/20/19 08:00 98.4 82 20 124/61 (82) 95 09/20/19 06:15 74 73 89 09/20/19 04:36 62 09/20/19 04:00 98.1 55 20 136/80 (98) 96 09/20/19 02:00 97.8 09/20/19 00:00 99.8 60 20 136/72 (93) 96 09/20/19 00:00 57 09/19/19 21:00 Room Air 09/19/19 20:00 99.9 59 20 120/72 (88) 95 09/19/19 20:00 68 09/19/19 16:00 99.7 87 20 120/77 (91) 95 09/19/19 16:00 61 09/19/19 14:00 86 88 93 09/19/19 12:00 85 09/19/19 12:00 100.0 86 20 115/72 (86) 95 09/19/19 09:16 99.1 Intake and Output 09/19/19 09/20/19 19:00 07:00 Intake Total 440 ml Output Total 300 ml 600 ml Balance 140 ml -600 ml Intake Oral 440 ml Output Urine Total 300 ml 600 ml # Voids 1 Laboratory Tests 09/19/19 12:40: Arterial Blood pH 7.415, Arterial Blood Partial Pressure CO2 31.4L, Arterial Blood Partial Pressure O2 89.3, Arterial Blood HCO3 19.7L, Arterial Blood Oxygen Saturation 96.6, Arterial Blood Base Excess -3.8L, Mick Test Positive 09/20/19 06:12: White Blood Count 7.1, Red Blood Count 4.33L, Hemoglobin 12.1L, Hematocrit 38.4L , Mean Corpuscular Volume 89, Mean Corpuscular Hemoglobin 27.8, Mean Corpuscular Hemoglobin Concent 31.4L, Red Cell Distribution Width 12.8, Platelet Count 273, Mean Platelet Volume 6.7, Neutrophils (%) (Auto) 83.1H, Lymphocytes (%) (Auto) 8.1L, Monocytes (%) (Auto) 7.4, Eosinophils (%) (Auto) 0.1, Basophils (%) (Auto) 1.3, Fibrinogen 666H, D-Dimer 0.75H, Sodium Level 139 , Potassium Level 4.2, Chloride Level 105, Carbon Dioxide Level 24, Anion Gap 10 , Blood Urea Nitrogen 11, Creatinine 1.5H, Estimat Glomerular Filtration Rate 56.1, Glucose Level 114H, Calcium Level 7.8L, Ferritin 1210H, Total Bilirubin 0.3, Direct Bilirubin < 0.1, Aspartate Amino Transf (AST/SGOT) 64H, Alanine Aminotransferase (ALT/SGPT) 104H, Alkaline Phosphatase 66, Lactate Dehydrogenase 423H, C-Reactive Protein, Quantitative 3.0H, Total Protein 6.4, Albumin 2.4L, Globulin 4.0, Albumin/Globulin Ratio 0.6L, HIV (1&2) Antibody Rapid Negative, TB Test (T-Spot) [Pending], TB Test Nil Control (T-Spot) [ Pending], TB Test Panel A (T-Spot) [Pending], TB Test Panel B (T-Spot) [Pending] , TB Test Positive Control (T-Spot) [Pending] Height (Feet): 6 Height (Inches): 3.00 Weight (Pounds): 222 General Appearance: no apparent distress EENT: normal ENT inspection Neck: supple Cardiovascular: normal rate Respiratory/Chest: decreased breath sounds Abdomen: normal bowel sounds, non tender, soft Extremities: non-tender Scott Owens MD Sep 20, 2019 09:11
--- NOTE | 2019-09-20 10:08 | Pulmonology Progress Note ---
Subjective ROS Limited/Unobtainable: Yes Allergies: Coded Allergies: No Known Allergies (Unverified , 09/17/19) Subjective on isolation no dizziness, no further syncopal episodes HH stable no further melanotic stools tolerates regular diet on RA no SOB Objective Last 24 Hour Vital Signs Date Time Temp Pulse Resp B/P (MAP) Pulse Ox O2 Delivery O2 Flow Rate FiO2 09/20/19 09:00 Room Air 09/20/19 08:28 82 124/61 09/20/19 08:00 98.4 82 20 124/61 (82) 95 09/20/19 06:15 74 73 89 09/20/19 04:36 62 09/20/19 04:00 98.1 55 20 136/80 (98) 96 09/20/19 02:00 97.8 09/20/19 00:00 99.8 60 20 136/72 (93) 96 09/20/19 00:00 57 09/19/19 21:00 Room Air 09/19/19 20:00 99.9 59 20 120/72 (88) 95 09/19/19 20:00 68 09/19/19 16:00 99.7 87 20 120/77 (91) 95 09/19/19 16:00 61 09/19/19 14:00 86 88 93 09/19/19 12:00 85 09/19/19 12:00 100.0 86 20 115/72 (86) 95 Intake and Output 09/19/19 09/20/19 19:00 07:00 Intake Total 440 ml Output Total 300 ml 600 ml Balance 140 ml -600 ml Intake Oral 440 ml Output Urine Total 300 ml 600 ml # Voids 1 Objective General Appearance: WD/WN - in NAD , alert Lines, tubes and drains: peripheral HEENT: normocephalic, atraumatic, anicteric, mucous membranes moist Neck: supple Respiratory/Chest: lungs clear, no respiratory distress, no accessory muscle use Cardiovascular/Chest: normal rate Abdomen: normal bowel sounds, non tender, soft Extremities: normal range of motion, no calf tenderness, normal capillary refill, no edema Skin Exam: warm/dry Neurologic: production grip II-XII grossly normal, no motor/sensory deficits, alert, oriented x 3, responsive Musculoskeletal: normal muscle bulk Microbiology Date/Time Source Procedure Growth Status 09/17/19 17:30 Blood Blood Culture - Preliminary NO GROWTH AFTER 48 HOURS Resulted 09/17/19 17:00 Blood Blood Culture - Preliminary NO GROWTH AFTER 48 HOURS Resulted 09/18/19 11:38 Nasopharynx Coronavirus COVID-19 PCR ([facility]) - Final Complete 09/17/19 17:05 Nasopharynx SARS-CoV-2 RdRp Gene Assay - Final Complete Laboratory Tests 09/19/19 12:40: Arterial Blood pH 7.415, Arterial Blood Partial Pressure CO2 31.4L, Arterial Blood Partial Pressure O2 89.3, Arterial Blood HCO3 19.7L, Arterial Blood Oxygen Saturation 96.6, Arterial Blood Base Excess -3.8L, Mick Test Positive 09/20/19 06:12: White Blood Count 7.1, Red Blood Count 4.33L, Hemoglobin 12.1L, Hematocrit 38.4L , Mean Corpuscular Volume 89, Mean Corpuscular Hemoglobin 27.8, Mean Corpuscular Hemoglobin Concent 31.4L, Red Cell Distribution Width 12.8, Platelet Count 273, Mean Platelet Volume 6.7, Neutrophils (%) (Auto) 83.1H, Lymphocytes (%) (Auto) 8.1L, Monocytes (%) (Auto) 7.4, Eosinophils (%) (Auto) 0.1, Basophils (%) (Auto) 1.3, Fibrinogen 666H, D-Dimer 0.75H, Sodium Level 139 , Potassium Level 4.2, Chloride Level 105, Carbon Dioxide Level 24, Anion Gap 10 , Blood Urea Nitrogen 11, Creatinine 1.5H, Estimat Glomerular Filtration Rate 56.1, Glucose Level 114H, Calcium Level 7.8L, Ferritin 1210H, Total Bilirubin 0.3, Direct Bilirubin < 0.1, Aspartate Amino Transf (AST/SGOT) 64H, Alanine Aminotransferase (ALT/SGPT) 104H, Alkaline Phosphatase 66, Lactate Dehydrogenase 423H, C-Reactive Protein, Quantitative 3.0H, Total Protein 6.4, Albumin 2.4L, Globulin 4.0, Albumin/Globulin Ratio 0.6L, HIV (1&2) Antibody Rapid Negative, TB Test (T-Spot) [Pending], TB Test Nil Control (T-Spot) [ Pending], TB Test Panel A (T-Spot) [Pending], TB Test Panel B (T-Spot) [Pending] , TB Test Positive Control (T-Spot) [Pending] Current Medications Medications (Trade) Dose Ordered Sig/Dae Route PRN Reason Start Time Stop Time Status Last Admin Dose Admin Acetaminophen (Tylenol) 650 mg Q4H PRN ORAL Mild Pain (Pain Scale 1-3) 09/17/19 23:30 10/17/19 23:29 09/19/19 08:46 Acetaminophen (Tylenol) 650 mg Q4H PRN RECTAL Mild Pain (Pain Scale 1-3) 09/17/19 23:30 10/17/19 23:29 Albuterol Sulfate (Proventil MDI) 2 puff Q4H PRN INH Shortness of Breath 09/18/19 09:45 12/17/19 09:44 Amlodipine Besylate (Norvasc) 5 mg DAILY ORAL 09/18/19 09:00 10/18/19 08:59 09/20/19 08:28 Ascorbic Acid (Vitamin C) 500 mg TWICE A DAY ORAL 09/18/19 18:00 10/18/19 17:59 09/20/19 08:27 Azithromycin (Zithromax) 500 mg DAILY ORAL 09/19/19 13:00 09/26/19 12:59 09/20/19 08:28 Ceftriaxone Sodium 1 gm/ Dextrose 55 ml @ 110 mls/hr Q24H IVPB 09/19/19 14:00 09/26/19 13:59 09/19/19 13:23 Docusate Sodium (Colace) 100 mg TWICE A DAY ORAL 09/20/19 18:00 10/20/19 17:59 Ondansetron HCl (Zofran) 4 mg Q4H PRN IVP Nausea & Vomiting 09/17/19 23:30 10/17/19 23:29 Pantoprazole (Protonix) 40 mg EVERY 12 HOURS IV 09/18/19 09:00 10/18/19 08:59 09/20/19 08:27 Polyethylene Glycol (Miralax) 17 gm BEDTIME ORAL 09/20/19 21:00 10/20/19 20:59 Zinc Sulfate (Zinc Sulfate) 220 mg DAILY ORAL 09/19/19 09:00 12/18/19 08:59 09/20/19 08:28 Assessment/Plan Assessment/Plan ASSESSMENT COVID-19 PNA possible GI bleeding /melanotic stools Syncope ROBERT Hx of hypertension Transaminitis PLAN OF CARE tele isolation O2 titrate to keep sat above 92%, pulse ox stable on RA MDI rapid COVID 09/16 and COVID by PCR 09/17 both positive, isolation empiric abx : Azithromycin and ceftriaxone supportive care Zinc and vit C fup CXR 09/18 bilateral interstitial and airspace opacities, no change from prior hold on steroid for now, given GI bleeding ID consult pending, consider Remdesivir EUA Venous Duplex BLE SCD given GI bleeding , D dimer stable monitor inflammatory markers, worse elevated ferritin 1210, LDH 424, CRP 3.0- > all trending up, risk for cytokine storm IL-6 pending serial troponin x 2 NGT, ECG no acute ischemic changes, r/o for acute MS cardio eval appreciated ECHO woth pEF 60%, no evidence of WMA BP management with CCB, stable orthostatic VS no evidence of orthostasis, started after already hydrated syncope with diff plausible etiologies, including COVID, orthostatic changes, dehydration, GI bleed per cardio syncope likely due to orthostasis in the setting of COVID pneumonia and decreased oral intake need to rule out bradyarrhythmia as it appeared that pt has some degree of sinus node disease. continue tele Protonix IV bid GI eval appreciated trend LFT per GI hold on endoscopy for now given + CoVID and stable HH diet advanced, tolerates stool OB x 2 pending generous IVF monitor renal parameters, lytes, avoid nephrotoxics, nephro eval appreciated creat 1.5 today case discussed and evaluated by supervising physician Michelle Reed NP Sep 20, 2019 10:08
[2019-09-20 12:00] VITALS: BP 114/61
--- NOTE | 2019-09-20 12:35 | Surgery Progress Note ---
Surgery Progress Note Subjective Additional Comments no acute events h/h stable states he feels well no bleeding covid+ Objective Last 24 Hour Vital Signs Date Time Temp Pulse Resp B/P (MAP) Pulse Ox O2 Delivery O2 Flow Rate FiO2 09/20/19 12:00 58 09/20/19 12:00 99.1 76 20 114/61 (78) 96 09/20/19 09:00 Room Air 09/20/19 08:28 82 124/61 09/20/19 08:00 98.4 82 20 124/61 (82) 95 09/20/19 08:00 57 09/20/19 06:15 74 73 89 09/20/19 04:36 62 09/20/19 04:00 98.1 55 20 136/80 (98) 96 09/20/19 02:00 97.8 09/20/19 00:00 99.8 60 20 136/72 (93) 96 09/20/19 00:00 57 09/19/19 21:00 Room Air 09/19/19 20:00 99.9 59 20 120/72 (88) 95 09/19/19 20:00 68 09/19/19 16:00 99.7 87 20 120/77 (91) 95 09/19/19 16:00 61 09/19/19 14:00 86 88 93 I&O Intake and Output 09/19/19 09/20/19 19:00 07:00 Intake Total 440 ml Output Total 300 ml 600 ml Balance 140 ml -600 ml Intake Oral 440 ml Output Urine Total 300 ml 600 ml # Voids 1 Cardiovascular: RSR Respiratory: clear Abdomen: soft, non-tender, present bowel sounds Extremities: no edema, no tenderness, no cyanosis Laboratory Tests Test 09/19/19 12:40 09/20/19 06:12 Arterial Blood pH 7.415 (7.350-7.450) Arterial Blood Partial Pressure CO2 31.4 mmHg (35.0-45.0) L Arterial Blood Partial Pressure O2 89.3 mmHg (75.0-100.0) Arterial Blood HCO3 19.7 mmol/L (22.0-26.0) L Arterial Blood Oxygen Saturation 96.6 % (95-100) Arterial Blood Base Excess -3.8 (-2-2) L Mick Test Positive White Blood Count 7.1 K/UL (4.8-10.8) Red Blood Count 4.33 M/UL (4.70-6.10) L Hemoglobin 12.1 G/DL (14.2-18.0) L Hematocrit 38.4 % (42.0-52.0) L Mean Corpuscular Volume 89 FL (80-99) Mean Corpuscular Hemoglobin 27.8 PG (27.0-31.0) Mean Corpuscular Hemoglobin Concent 31.4 G/DL (32.0-36.0) L Red Cell Distribution Width 12.8 % (11.6-14.8) Platelet Count 273 K/UL (150-450) Mean Platelet Volume 6.7 FL (6.5-10.1) Neutrophils (%) (Auto) 83.1 % (45.0-75.0) H Lymphocytes (%) (Auto) 8.1 % (20.0-45.0) L Monocytes (%) (Auto) 7.4 % (1.0-10.0) Eosinophils (%) (Auto) 0.1 % (0.0-3.0) Basophils (%) (Auto) 1.3 % (0.0-2.0) Fibrinogen 666 mg/dL (200-400) H D-Dimer 0.75 mg/L FEU (0.00-0.49) H Sodium Level 139 MMOL/L (136-145) Potassium Level 4.2 MMOL/L (3.5-5.1) Chloride Level 105 MMOL/L (98-107) Carbon Dioxide Level 24 MMOL/L (21-32) Anion Gap 10 mmol/L (5-15) Blood Urea Nitrogen 11 mg/dL (7-18) Creatinine 1.5 MG/DL (0.55-1.30) H Estimat Glomerular Filtration Rate 56.1 mL/min (>60) Glucose Level 114 MG/DL (74-106) H Calcium Level 7.8 MG/DL (8.5-10.1) L Ferritin 1210 NG/ML (8-388) H Total Bilirubin 0.3 MG/DL (0.2-1.0) Direct Bilirubin < 0.1 MG/DL (0.0-0.3) Aspartate Amino Transf (AST/SGOT) 64 U/L (15-37) H Alanine Aminotransferase (ALT/SGPT) 104 U/L (12-78) H Alkaline Phosphatase 66 U/L (46-116) Lactate Dehydrogenase 423 U/L (81-234) H C-Reactive Protein, Quantitative 3.0 mg/dL (0.00-0.90) H Total Protein 6.4 G/DL (6.4-8.2) Albumin 2.4 G/DL (3.4-5.0) L Globulin 4.0 g/dL Albumin/Globulin Ratio 0.6 (1.0-2.7) L HIV (1&2) Antibody Rapid Negative (NEGATIVE) TB Test (T-Spot) Pending TB Test Nil Control (T-Spot) Pending TB Test Panel A (T-Spot) Pending TB Test Panel B (T-Spot) Pending TB Test Positive Control (T-Spot) Pending Plan Problems: (1) GI bleed Assessment & Plan: 68-year-old male with recent changes in stool consistency and color. Melena. Has been identified approximately 2 weeks now. No bright red blood noted. No active bleeding noted. Anemia but hemoglobin stable. Has not had a colonoscopy in the past or an endoscopy prior. Currently COVID positive. GI input noted and appreciated. No active bleeding will hold on endoscopy during positive viral effect. We will plan for treating COVID related pneumonia and plan for potential elective colonoscopy endoscopy. In the meantime if active bleeding noted or worsening condition may consider with precautions. No acute surgical intervention planned. We will monitor with serial exams Trend labs Okay for diet as tolerated We will monitor stool Thank you for let me participate in patient's care will follow with recommendations (2) Lab test positive for detection of COVID-19 virus (3) Black stools (4) Pneumonia due to COVID-19 virus Assessment & Plan: Lungs: Airspace opacities seen within the mid to lower lungs likely inflammatory or infectious. Pleural space: Unremarkable. Heart: Heart is enlarged. Mediastinum: Unremarkable. Bones/joints: Unremarkable. IMPRESSION: Airspace opacities seen within the mid to lower lungs likely inflammatory or infectious. (5) Syncope Kwasi Epstein Sep 20, 2019 12:35
--- NOTE | 2019-09-20 13:40 | Infectious Diseases Prog Note ---
Assessment/Plan Assessment: Pneumonia- 2ry to COVID19- on RA- not hypoxic on ABG -GI manifestation of covid (gastrotenteritis) -09/16 CXR: Airspace opacities seen within the mid to lower lungs likely inflammatory or infectious. -09/16 rapid covid neg -D-dimer 0.48 (09/16) -CRp 1.1 (09/07) -LDH 392 (09/16), 359 (09/17) -Ferritin 992 (09/16), 967 (09/17) Fever; improving No leukocytosis Lymphopenia -u./a neg -09/16 BCx neg ROBERT; improving Elevated LFTs; improving -acute hep panel neg, HIV ab screen neg BPH prostatectomy HTN Plan: -Continue Ceftriaxone and azithromycin #3 -Will consider remdesevir and decadron if Spo2 <94% at RA -f/u cx -Monitor CBC/CMP, temperatures -COVID19 isolation -Monitor CXR and inflammatory markers Thank you for consulting [facility]. Will continue to follow along with you. Neymar marcial RN. Subjective Allergies: Coded Allergies: No Known Allergies (Unverified , 09/17/19) afebrile >24hrs at RA LFts and Cr improving feels better inflammatory markers rising Objective Last 24 Hour Vital Signs Date Time Temp Pulse Resp B/P (MAP) Pulse Ox O2 Delivery O2 Flow Rate FiO2 09/20/19 12:00 58 09/20/19 12:00 99.1 76 20 114/61 (78) 96 09/20/19 09:00 Room Air 09/20/19 08:28 82 124/61 09/20/19 08:00 98.4 82 20 124/61 (82) 95 09/20/19 08:00 57 09/20/19 06:15 74 73 89 09/20/19 04:36 62 09/20/19 04:00 98.1 55 20 136/80 (98) 96 09/20/19 02:00 97.8 09/20/19 00:00 99.8 60 20 136/72 (93) 96 09/20/19 00:00 57 09/19/19 21:00 Room Air 09/19/19 20:00 99.9 59 20 120/72 (88) 95 09/19/19 20:00 68 09/19/19 16:00 99.7 87 20 120/77 (91) 95 09/19/19 16:00 61 09/19/19 14:00 86 88 93 Height (Feet): 6 Height (Inches): 3.00 Weight (Pounds): 222 Cardiovascular: RSR Respiratory: clear Abdomen: soft, non-tender, present bowel sounds Extremities: no edema, no tenderness, no cyanosis Microbiology Date/Time Source Procedure Growth Status 09/17/19 17:30 Blood Blood Culture - Preliminary NO GROWTH AFTER 48 HOURS Resulted 09/17/19 17:00 Blood Blood Culture - Preliminary NO GROWTH AFTER 48 HOURS Resulted 09/18/19 11:38 Nasopharynx Coronavirus COVID-19 PCR ([facility]) - Final Complete 09/17/19 17:05 Nasopharynx SARS-CoV-2 RdRp Gene Assay - Final Complete Laboratory Tests Test 09/20/19 06:12 White Blood Count 7.1 K/UL (4.8-10.8) Red Blood Count 4.33 M/UL (4.70-6.10) L Hemoglobin 12.1 G/DL (14.2-18.0) L Hematocrit 38.4 % (42.0-52.0) L Mean Corpuscular Volume 89 FL (80-99) Mean Corpuscular Hemoglobin 27.8 PG (27.0-31.0) Mean Corpuscular Hemoglobin Concent 31.4 G/DL (32.0-36.0) L Red Cell Distribution Width 12.8 % (11.6-14.8) Platelet Count 273 K/UL (150-450) Mean Platelet Volume 6.7 FL (6.5-10.1) Neutrophils (%) (Auto) 83.1 % (45.0-75.0) H Lymphocytes (%) (Auto) 8.1 % (20.0-45.0) L Monocytes (%) (Auto) 7.4 % (1.0-10.0) Eosinophils (%) (Auto) 0.1 % (0.0-3.0) Basophils (%) (Auto) 1.3 % (0.0-2.0) Fibrinogen 666 mg/dL (200-400) H D-Dimer 0.75 mg/L FEU (0.00-0.49) H Sodium Level 139 MMOL/L (136-145) Potassium Level 4.2 MMOL/L (3.5-5.1) Chloride Level 105 MMOL/L (98-107) Carbon Dioxide Level 24 MMOL/L (21-32) Anion Gap 10 mmol/L (5-15) Blood Urea Nitrogen 11 mg/dL (7-18) Creatinine 1.5 MG/DL (0.55-1.30) H Estimat Glomerular Filtration Rate 56.1 mL/min (>60) Glucose Level 114 MG/DL (74-106) H Calcium Level 7.8 MG/DL (8.5-10.1) L Ferritin 1210 NG/ML (8-388) H Total Bilirubin 0.3 MG/DL (0.2-1.0) Direct Bilirubin < 0.1 MG/DL (0.0-0.3) Aspartate Amino Transf (AST/SGOT) 64 U/L (15-37) H Alanine Aminotransferase (ALT/SGPT) 104 U/L (12-78) H Alkaline Phosphatase 66 U/L (46-116) Lactate Dehydrogenase 423 U/L (81-234) H C-Reactive Protein, Quantitative 3.0 mg/dL (0.00-0.90) H Total Protein 6.4 G/DL (6.4-8.2) Albumin 2.4 G/DL (3.4-5.0) L Globulin 4.0 g/dL Albumin/Globulin Ratio 0.6 (1.0-2.7) L HIV (1&2) Antibody Rapid Negative (NEGATIVE) TB Test (T-Spot) Pending TB Test Nil Control (T-Spot) Pending TB Test Panel A (T-Spot) Pending TB Test Panel B (T-Spot) Pending TB Test Positive Control (T-Spot) Pending Current Medications Medications (Trade) Dose Ordered Sig/Dae Route PRN Reason Start Time Stop Time Status Last Admin Dose Admin Acetaminophen (Tylenol) 650 mg Q4H PRN ORAL Mild Pain (Pain Scale 1-3) 09/17/19 23:30 10/17/19 23:29 09/19/19 08:46 Acetaminophen (Tylenol) 650 mg Q4H PRN RECTAL Mild Pain (Pain Scale 1-3) 09/17/19 23:30 10/17/19 23:29 Albuterol Sulfate (Proventil MDI) 2 puff Q4H PRN INH Shortness of Breath 09/18/19 09:45 12/17/19 09:44 Amlodipine Besylate (Norvasc) 5 mg DAILY ORAL 09/18/19 09:00 10/18/19 08:59 09/20/19 08:28 Ascorbic Acid (Vitamin C) 500 mg TWICE A DAY ORAL 09/18/19 18:00 10/18/19 17:59 09/20/19 08:27 Azithromycin (Zithromax) 500 mg DAILY ORAL 09/19/19 13:00 09/26/19 12:59 09/20/19 08:28 Ceftriaxone Sodium 1 gm/ Dextrose 55 ml @ 110 mls/hr Q24H IVPB 09/19/19 14:00 09/26/19 13:59 09/19/19 13:23 Docusate Sodium (Colace) 100 mg TWICE A DAY ORAL 09/20/19 18:00 10/20/19 17:59 Ondansetron HCl (Zofran) 4 mg Q4H PRN IVP Nausea & Vomiting 09/17/19 23:30 10/17/19 23:29 Pantoprazole (Protonix) 40 mg EVERY 12 HOURS IV 09/18/19 09:00 10/18/19 08:59 09/20/19 08:27 Polyethylene Glycol (Miralax) 17 gm BEDTIME ORAL 09/20/19 21:00 10/20/19 20:59 Zinc Sulfate (Zinc Sulfate) 220 mg DAILY ORAL 09/19/19 09:00 12/18/19 08:59 09/20/19 08:28 Leona Argueta M.D. Sep 20, 2019 13:40
[2019-09-20] MEDS: cefTRIAXone 1 GM in D5W 55 ML IVPB SCH (14:02)
--- NOTE | 2019-09-20 14:36 | Cardiology Progress Note ---
Assessment/Plan Assessment/Plan syncope renal insuf abn lfts melanotic stool covid 19 pneumonia sinus zoey at admission tele personally reviewed sinus no zoey no svt no vt no pausss ekg personally reviewed hgb stable lwo grade febrile on abx id noted sat are good 94-96% on room air cv stable at themoment no echo will be performed as the etiology of syncope felt to be volume related and : trop neg , pro bnp normla , not worth the risk of transmission of covid to staff Subjective Subjective in isolation per rn: no s/s of distress or SOB, breathing regular and no shortness of breath, AAO x 4, denies pain. pre pulm pa tolerates regular diet on RA no SOB Objective Last 24 Hour Vital Signs Date Time Temp Pulse Resp B/P (MAP) Pulse Ox O2 Delivery O2 Flow Rate FiO2 09/20/19 14:00 76 93 89 09/20/19 12:00 58 09/20/19 12:00 99.1 76 20 114/61 (78) 96 09/20/19 09:00 Room Air 09/20/19 08:28 82 124/61 09/20/19 08:00 98.4 82 20 124/61 (82) 95 09/20/19 08:00 57 09/20/19 06:15 74 73 89 09/20/19 04:36 62 09/20/19 04:00 98.1 55 20 136/80 (98) 96 09/20/19 02:00 97.8 09/20/19 00:00 99.8 60 20 136/72 (93) 96 09/20/19 00:00 57 09/19/19 21:00 Room Air 09/19/19 20:00 99.9 59 20 120/72 (88) 95 09/19/19 20:00 68 09/19/19 16:00 99.7 87 20 120/77 (91) 95 09/19/19 16:00 61 Intake and Output 09/19/19 09/20/19 19:00 07:00 Intake Total 440 ml Output Total 300 ml 600 ml Balance 140 ml -600 ml Intake Oral 440 ml Output Urine Total 300 ml 600 ml # Voids 1 Laboratory Tests Test 09/20/19 06:12 White Blood Count 7.1 K/UL (4.8-10.8) Red Blood Count 4.33 M/UL (4.70-6.10) L Hemoglobin 12.1 G/DL (14.2-18.0) L Hematocrit 38.4 % (42.0-52.0) L Mean Corpuscular Volume 89 FL (80-99) Mean Corpuscular Hemoglobin 27.8 PG (27.0-31.0) Mean Corpuscular Hemoglobin Concent 31.4 G/DL (32.0-36.0) L Red Cell Distribution Width 12.8 % (11.6-14.8) Platelet Count 273 K/UL (150-450) Mean Platelet Volume 6.7 FL (6.5-10.1) Neutrophils (%) (Auto) 83.1 % (45.0-75.0) H Lymphocytes (%) (Auto) 8.1 % (20.0-45.0) L Monocytes (%) (Auto) 7.4 % (1.0-10.0) Eosinophils (%) (Auto) 0.1 % (0.0-3.0) Basophils (%) (Auto) 1.3 % (0.0-2.0) Fibrinogen 666 mg/dL (200-400) H D-Dimer 0.75 mg/L FEU (0.00-0.49) H Sodium Level 139 MMOL/L (136-145) Potassium Level 4.2 MMOL/L (3.5-5.1) Chloride Level 105 MMOL/L (98-107) Carbon Dioxide Level 24 MMOL/L (21-32) Anion Gap 10 mmol/L (5-15) Blood Urea Nitrogen 11 mg/dL (7-18) Creatinine 1.5 MG/DL (0.55-1.30) H Estimat Glomerular Filtration Rate 56.1 mL/min (>60) Glucose Level 114 MG/DL (74-106) H Calcium Level 7.8 MG/DL (8.5-10.1) L Ferritin 1210 NG/ML (8-388) H Total Bilirubin 0.3 MG/DL (0.2-1.0) Direct Bilirubin < 0.1 MG/DL (0.0-0.3) Aspartate Amino Transf (AST/SGOT) 64 U/L (15-37) H Alanine Aminotransferase (ALT/SGPT) 104 U/L (12-78) H Alkaline Phosphatase 66 U/L (46-116) Lactate Dehydrogenase 423 U/L (81-234) H C-Reactive Protein, Quantitative 3.0 mg/dL (0.00-0.90) H Total Protein 6.4 G/DL (6.4-8.2) Albumin 2.4 G/DL (3.4-5.0) L Globulin 4.0 g/dL Albumin/Globulin Ratio 0.6 (1.0-2.7) L HIV (1&2) Antibody Rapid Negative (NEGATIVE) TB Test (T-Spot) Pending TB Test Nil Control (T-Spot) Pending TB Test Panel A (T-Spot) Pending TB Test Panel B (T-Spot) Pending TB Test Positive Control (T-Spot) Pending Microbiology Date/Time Source Procedure Growth Status 09/17/19 17:30 Blood Blood Culture - Preliminary NO GROWTH AFTER 48 HOURS Resulted 09/17/19 17:00 Blood Blood Culture - Preliminary NO GROWTH AFTER 48 HOURS Resulted 09/18/19 11:38 Nasopharynx Coronavirus COVID-19 PCR ([facility]) - Final Complete 09/17/19 17:05 Nasopharynx SARS-CoV-2 RdRp Gene Assay - Final Complete Objective pt in isolation for covid per pulm pa Respiratory/Chest: lungs clear, no respiratory distress, no accessory muscle use Cardiovascular/Chest: normal rate Abdomen: normal bowel sounds, non tender, soft Extremities: normal range of motion, no calf tenderness, normal capillary refill, no edema Skin Exam: warm/dry per ID Cardiovascular: RSR Respiratory: clear Abdomen: soft, non-tender, present bowel sounds Extremities: no edema, no tenderness, no cyanosis Miguel Dunn MD Sep 20, 2019 14:36
[2019-09-20 16:00] VITALS: BP 114/61
[2019-09-20] MEDS ORDERED: guaiFENesin /DM 10ml syrup ORAL PRN (17:30)
--- NOTE | 2019-09-20 17:30 | Nephrology Progress Note ---
Assessment/Plan Problem List: (1) ROBERT (acute kidney injury) (2) Pneumonia due to COVID-19 virus (3) Syncope (4) Black stools (5) CKD (chronic kidney disease) stage 3, GFR 30-59 ml/min Plan continue iv hydration , comfort measures Subjective Constitutional: Reports: weakness HEENT: Reports: no symptoms Genitourinary: Reports: no symptoms Neurologic/Psychiatric: Reports: no symptoms Objective Objective Last 24 Hour Vital Signs Date Time Temp Pulse Resp B/P (MAP) Pulse Ox O2 Delivery O2 Flow Rate FiO2 09/20/19 16:00 64 09/20/19 14:00 76 93 89 09/20/19 12:00 58 09/20/19 12:00 99.1 76 20 114/61 (78) 96 09/20/19 09:00 Room Air 09/20/19 08:28 82 124/61 09/20/19 08:00 98.4 82 20 124/61 (82) 95 09/20/19 08:00 57 09/20/19 06:15 74 73 89 09/20/19 04:36 62 09/20/19 04:00 98.1 55 20 136/80 (98) 96 09/20/19 02:00 97.8 09/20/19 00:00 99.8 60 20 136/72 (93) 96 09/20/19 00:00 57 09/19/19 21:00 Room Air 09/19/19 20:00 99.9 59 20 120/72 (88) 95 09/19/19 20:00 68 Intake and Output 09/19/19 09/20/19 19:00 07:00 Intake Total 440 ml Output Total 300 ml 600 ml Balance 140 ml -600 ml Intake Oral 440 ml Output Urine Total 300 ml 600 ml # Voids 1 Laboratory Tests 09/20/19 06:12: White Blood Count 7.1, Red Blood Count 4.33L, Hemoglobin 12.1L, Hematocrit 38.4L , Mean Corpuscular Volume 89, Mean Corpuscular Hemoglobin 27.8, Mean Corpuscular Hemoglobin Concent 31.4L, Red Cell Distribution Width 12.8, Platelet Count 273, Mean Platelet Volume 6.7, Neutrophils (%) (Auto) 83.1H, Lymphocytes (%) (Auto) 8.1L, Monocytes (%) (Auto) 7.4, Eosinophils (%) (Auto) 0.1, Basophils (%) (Auto) 1.3, Fibrinogen 666H, D-Dimer 0.75H, Sodium Level 139 , Potassium Level 4.2, Chloride Level 105, Carbon Dioxide Level 24, Anion Gap 10 , Blood Urea Nitrogen 11, Creatinine 1.5H, Estimat Glomerular Filtration Rate 56.1, Glucose Level 114H, Calcium Level 7.8L, Ferritin 1210H, Total Bilirubin 0.3, Direct Bilirubin < 0.1, Aspartate Amino Transf (AST/SGOT) 64H, Alanine Aminotransferase (ALT/SGPT) 104H, Alkaline Phosphatase 66, Lactate Dehydrogenase 423H, C-Reactive Protein, Quantitative 3.0H, Total Protein 6.4, Albumin 2.4L, Globulin 4.0, Albumin/Globulin Ratio 0.6L, HIV (1&2) Antibody Rapid Negative, TB Test (T-Spot) [Pending], TB Test Nil Control (T-Spot) [ Pending], TB Test Panel A (T-Spot) [Pending], TB Test Panel B (T-Spot) [Pending] , TB Test Positive Control (T-Spot) [Pending] Height (Feet): 6 Height (Inches): 3.00 Weight (Pounds): 222 General Appearance: no apparent distress, alert EENT: normal ENT inspection Neck: supple Cardiovascular: regular rhythm Respiratory/Chest: lungs clear Abdomen: non tender Neurologic: supervisor cell 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
[2019-09-20] MEDS ORDERED: Docusate 100mg cap ORAL SCH (18:00)
[2019-09-20 20:00] VITALS: BP 138/74
[2019-09-20] MEDS: Miralax 17gm pkt ORAL SCH (21:00)
[2019-09-21] VITALS: BP 142/70
[2019-09-21 04:00] VITALS: BP 134/78
[2019-09-21 07:15] LABS: BASOPHILS % (AUTO) 0.4 % (0.0-2.0); EOSINOPHILS % (AUTO) 0.3 % (0.0-3.0); HEMATOCRIT 39.3 % (42.0-52.0); HEMOGLOBIN 12.5 G/DL (14.2-18.0); LYMPHOCYTES % (AUTO) 13.7 % (20.0-45.0); MEAN CORPUSCULAR VOLUME 89 FL (80-99); MONOCYTES % (AUTO) 8.9 % (1.0-10.0); NEUTROPHILS % (AUTO) 76.8 % (45.0-75.0); PLATELET COUNT 344 K/UL (150-450); RED BLOOD COUNT 4.43 M/UL (4.70-6.10); RED CELL DISTRIBUTION WIDTH 13.4 % (11.6-14.8); WHITE BLOOD COUNT 5.6 K/UL (4.8-10.8)
[2019-09-21 08:00] VITALS: BP 124/78
[2019-09-21 08:37] LABS: ANION GAP 8 mmol/L (5-15); BLOOD UREA NITROGEN 11 mg/dL (7-18); CALCIUM 8.4 MG/DL (8.5-10.1); CARBON DIOXIDE 24 MMOL/L (21-32); CHLORIDE 104 MMOL/L (98-107); CREATININE 1.5 MG/DL (0.55-1.30); FERRITIN 1223 NG/ML (8-388); POTASSIUM 4.8 MMOL/L (3.5-5.1); SODIUM 136 MMOL/L (136-145)
[2019-09-21] MEDS: Pantoprazole Inj IV SCH ×2 (08:37→20:59)
[2019-09-21] MEDS: Zinc Sulfate 220mg ORAL SCH (08:37)
[2019-09-21] MEDS: Azithromycin 250mg tab ORAL SCH (08:37)
[2019-09-21] MEDS: Ascorbic Acid 500mg tab ORAL SCH ×2 (08:37→17:09)
--- NOTE | 2019-09-21 09:16 | General Progress Note ---
Assessment/Plan Problem List: (1) Black stools ICD Codes: K92.1 - Melena SNOMED: 590863524 (2) Syncope ICD Codes: R55 - Syncope and collapse SNOMED: 427132511 Qualifiers: Qualified Codes: R55 - Syncope and collapse (3) Pneumonia due to COVID-19 virus ICD Codes: U07.1 - COVID-19; J12.89 - Other viral pneumonia SNOMED: 565661571, [id number] Assessment/Plan: stable H&H above 12 pending stool ob ppi bid EGD on hold given COVID + and stable H&H Subjective Allergies: Coded Allergies: No Known Allergies (Unverified , 09/17/19) Objective Last 24 Hour Vital Signs Date Time Temp Pulse Resp B/P (MAP) Pulse Ox O2 Delivery O2 Flow Rate FiO2 09/21/19 08:37 62 124/78 09/21/19 08:00 97.8 62 20 124/78 (93) 98 09/21/19 06:00 80 99 92 09/21/19 04:00 43 09/21/19 04:00 97.3 56 19 134/78 (96) 98 09/21/19 00:00 99.0 63 20 142/70 (94) 96 09/21/19 00:00 57 09/20/19 22:00 77 96 90 09/20/19 21:00 Room Air 09/20/19 20:00 99.0 61 20 138/74 (95) 98 09/20/19 20:00 49 09/20/19 16:00 64 09/20/19 16:00 99.1 76 20 114/61 (78) 96 09/20/19 14:00 76 93 89 09/20/19 12:00 58 09/20/19 12:00 99.1 76 20 114/61 (78) 96 Intake and Output 09/20/19 09/21/19 19:00 07:00 Intake Total 960 ml Output Total 1200 ml Balance 960 ml -1200 ml Intake Oral 720 ml IV Total 240 ml Output Urine Total 1200 ml # Voids 3 Laboratory Tests 09/21/19 06:54: White Blood Count 5.6, Red Blood Count 4.43L, Hemoglobin 12.5L, Hematocrit 39.3L , Mean Corpuscular Volume 89, Mean Corpuscular Hemoglobin 28.2, Mean Corpuscular Hemoglobin Concent 31.8L, Red Cell Distribution Width 13.4, Platelet Count 344, Mean Platelet Volume 6.3L, Neutrophils (%) (Auto) 76.8H, Lymphocytes (%) (Auto) 13.7L, Monocytes (%) (Auto) 8.9, Eosinophils (%) (Auto) 0.3, Basophils (%) (Auto) 0.4, Fibrinogen 789H, D-Dimer 0.80H, Sodium Level 136 , Potassium Level 4.8, Chloride Level 104, Carbon Dioxide Level 24, Anion Gap 8 , Blood Urea Nitrogen 11, Creatinine 1.5H, Estimat Glomerular Filtration Rate 56.1, Glucose Level 103, Calcium Level 8.4L, Ferritin 1223H, Lactate Dehydrogenase 365H, C-Reactive Protein, Quantitative 1.9H Height (Feet): 6 Height (Inches): 3.00 Weight (Pounds): 220 General Appearance: no apparent distress EENT: normal ENT inspection Neck: supple Cardiovascular: normal rate Respiratory/Chest: decreased breath sounds Abdomen: normal bowel sounds, non tender, soft Scott Owens MD Sep 21, 2019 09:16
--- NOTE | 2019-09-21 10:13 | Diagnostic Imaging Report ---
Indication: Fourth Technique: One view of the chest Comparison: 09/19/2019 Findings: The heart is borderline enlarged. Bilateral interstitial and airspace infiltrates versus edema persists, unchanged. The pleural spaces remain clear Impression: Unchanged, over 2 days, findings as above.
[2019-09-21 12:00] VITALS: BP 125/74
--- NOTE | 2019-09-21 12:43 | Pulmonology Progress Note ---
Michelle Reed PRESSURE DISPATCHER 09/21/19 1243: Subjective ROS Limited/Unobtainable: Yes Allergies: Coded Allergies: No Known Allergies (Unverified , 09/17/19) Subjective on isolation no dizziness, no further syncopal episodes HH stable no further melanotic stools tolerates regular diet on RA no SOB CXR 09/20 no changes from prior Objective Last 24 Hour Vital Signs Date Time Temp Pulse Resp B/P (MAP) Pulse Ox O2 Delivery O2 Flow Rate FiO2 09/21/19 12:00 99.0 60 19 125/74 (91) 96 09/21/19 09:00 Room Air 09/21/19 08:37 62 124/78 09/21/19 08:00 97.8 62 20 124/78 (93) 98 09/21/19 07:37 55 09/21/19 06:00 80 99 92 09/21/19 04:00 43 09/21/19 04:00 97.3 56 19 134/78 (96) 98 09/21/19 00:00 99.0 63 20 142/70 (94) 96 09/21/19 00:00 57 09/20/19 22:00 77 96 90 09/20/19 21:00 Room Air 09/20/19 20:00 99.0 61 20 138/74 (95) 98 09/20/19 20:00 49 09/20/19 16:00 64 09/20/19 16:00 99.1 76 20 114/61 (78) 96 09/20/19 14:00 76 93 89 Intake and Output 09/20/19 09/21/19 19:00 07:00 Intake Total 960 ml Output Total 1200 ml Balance 960 ml -1200 ml Intake Oral 720 ml IV Total 240 ml Output Urine Total 1200 ml # Voids 3 Objective General Appearance: WD/WN - in NAD , alert Lines, tubes and drains: peripheral HEENT: normocephalic, atraumatic, anicteric, mucous membranes moist Neck: supple Respiratory/Chest: lungs clear, no respiratory distress, no accessory muscle use Cardiovascular/Chest: normal rate Abdomen: normal bowel sounds, non tender, soft Extremities: normal range of motion, no calf tenderness, normal capillary refill, no edema Skin Exam: warm/dry 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, no motor/sensory deficits, alert, oriented x 3, responsive Musculoskeletal: normal muscle bulk Laboratory Tests 09/21/19 06:54: White Blood Count 5.6, Red Blood Count 4.43L, Hemoglobin 12.5L, Hematocrit 39.3L , Mean Corpuscular Volume 89, Mean Corpuscular Hemoglobin 28.2, Mean Corpuscular Hemoglobin Concent 31.8L, Red Cell Distribution Width 13.4, Platelet Count 344, Mean Platelet Volume 6.3L, Neutrophils (%) (Auto) 76.8H, Lymphocytes (%) (Auto) 13.7L, Monocytes (%) (Auto) 8.9, Eosinophils (%) (Auto) 0.3, Basophils (%) (Auto) 0.4, Fibrinogen 789H, D-Dimer 0.80H, Sodium Level 136 , Potassium Level 4.8, Chloride Level 104, Carbon Dioxide Level 24, Anion Gap 8 , Blood Urea Nitrogen 11, Creatinine 1.5H, Estimat Glomerular Filtration Rate 56.1, Glucose Level 103, Calcium Level 8.4L, Ferritin 1223H, Lactate Dehydrogenase 365H, C-Reactive Protein, Quantitative 1.9H Current Medications Medications (Trade) Dose Ordered Sig/Dae Route PRN Reason Start Time Stop Time Status Last Admin Dose Admin Acetaminophen (Tylenol) 650 mg Q4H PRN ORAL Mild Pain (Pain Scale 1-3) 09/17/19 23:30 10/17/19 23:29 09/19/19 08:46 Acetaminophen (Tylenol) 650 mg Q4H PRN RECTAL Mild Pain (Pain Scale 1-3) 09/17/19 23:30 10/17/19 23:29 Albuterol Sulfate (Proventil MDI) 2 puff Q4H PRN INH Shortness of Breath 09/18/19 09:45 12/17/19 09:44 Amlodipine Besylate (Norvasc) 5 mg DAILY ORAL 09/18/19 09:00 10/18/19 08:59 09/21/19 08:37 Ascorbic Acid (Vitamin C) 500 mg TWICE A DAY ORAL 09/18/19 18:00 10/18/19 17:59 09/21/19 08:37 Azithromycin (Zithromax) 500 mg DAILY ORAL 09/19/19 13:00 09/26/19 12:59 09/21/19 08:37 Ceftriaxone Sodium 1 gm/ Dextrose 55 ml @ 110 mls/hr Q24H IVPB 09/19/19 14:00 09/26/19 13:59 09/20/19 14:02 Guaifenesin/ Dextromethorphan (Robitussin DM Syrup) 10 ml Q4H PRN ORAL For Cough 09/20/19 17:30 12/19/19 17:29 09/21/19 11:33 Ondansetron HCl (Zofran) 4 mg Q6H PRN IVP Nausea & Vomiting 09/20/19 17:30 10/20/19 17:29 Pantoprazole (Protonix) 40 mg EVERY 12 HOURS IV 09/18/19 09:00 10/18/19 08:59 09/21/19 08:37 Polyethylene Glycol (Miralax) 17 gm BEDTIME ORAL 09/20/19 21:00 10/20/19 20:59 09/20/19 21:00 Sodium Chloride 1,000 ml @ 50 mls/hr Q20H IV 09/20/19 17:45 10/20/19 17:44 09/20/19 17:53 Zinc Sulfate (Zinc Sulfate) 220 mg DAILY ORAL 09/19/19 09:00 12/18/19 08:59 09/21/19 08:37 Assessment/Plan Assessment/Plan ASSESSMENT COVID-19 PNA possible GI bleeding /melanotic stools Syncope ROBERT Hx of hypertension Transaminitis PLAN OF CARE tele isolation O2 titrate to keep sat above 92%, pulse ox stable on RA MDI rapid COVID 09/16 and COVID by PCR 09/17 both positive, isolation empiric abx : Azithromycin and ceftriaxone ID on board supportive care Zinc and vit C fup CXR 09/18 bilateral interstitial and airspace opacities, no change from prior hold on steroid for now, given GI bleeding CXR 09/20 - Bilateral interstitial and airspace infiltrates versus edema persists , unchanged. The pleural spaces remain clear Venous Duplex BLE SCD given GI bleeding , D dimer stable monitor inflammatory markers, elevated ferritin 1210, LDH 424-> 365; CRP 3.0 -> 1.9 IL-6 -65.7 hep panel NGT, HIV test nonreactive TB spot test pending serial troponin x 2 NGT, ECG no acute ischemic changes, r/o for acute WA cardio eval appreciated ECHO woth pEF 60%, no evidence of WMA BP management with CCB, stable orthostatic VS no evidence of orthostasis, started after already hydrated syncope with diff plausible etiologies, including COVID, orthostatic changes, dehydration, GI bleed per cardio syncope likely due to orthostasis in the setting of COVID pneumonia and decreased oral intake need to rule out bradyarrhythmia as it appeared that pt has some degree of sinus node disease. continue tele Protonix IV bid GI eval appreciated trend LFT per GI hold on endoscopy for now given + CoVID and stable HH diet advanced, tolerates stool OB x 2 pending generous IVF monitor renal parameters, lytes, avoid nephrotoxics, nephro eval appreciated creat 1.5 today pt wants to go home explained that PNA needs to be terated with IV abx and still requires inpatient care case discussed and evaluated by supervising physician Jose Luis Loera MD 09/21/19 1506: Subjective Allergies: Coded Allergies: No Known Allergies (Unverified , 09/17/19) Assessment/Plan Assessment/Plan Patient seen and examined with PRESSURE DISPATCHER. Agree with above A&P as it reflects our joint deliberations. Michelle Reed PRESSURE DISPATCHER Sep 21, 2019 12:43 Jose Luis Loera MD Sep 21, 2019 15:06
[2019-09-21] MEDS: cefTRIAXone 1 GM in D5W 55 ML IVPB SCH (14:15)
--- NOTE | 2019-09-21 15:26 | Infectious Diseases Prog Note ---
Assessment/Plan Assessment: Pneumonia- 2ry to COVID19- on RA- not hypoxic on ABG -GI manifestation of covid (gastrotenteritis) -09/20 CXR: Bilateral interstitial and airspace nfiltrates versus edema persists, unchanged. The pleural spaces remain clear -09/17 SARS-COV2 PCR + -09/16 CXR: Airspace opacities seen within the mid to lower lungs likely inflammatory or infectious. -09/16 rapid covid positive -D-dimer 0.48 (09/16) -CRp 1.1 (09/07) -LDH 392 (09/16), 359 (09/17) -Ferritin 992 (09/16), 967 (09/17) Fever; SP No leukocytosis Lymphopenia -u./a neg -09/16 BCx neg ROBERT; improving Elevated LFTs; improving -acute hep panel neg, HIV ab screen neg BPH prostatectomy HTN Plan: -Continue Ceftriaxone and azithromycin #4/5 -Will consider remdesevir and decadron if Spo2 <94% at RA -f/u cx -Monitor CBC/CMP, temperatures -COVID19 isolation -Monitor CXR and inflammatory markers Thank you for consulting [facility]. Will continue to follow along with you. Neymar marcial RN. Subjective Allergies: Coded Allergies: No Known Allergies (Unverified , 09/17/19) afebrile in ~48hrs at RA Objective Last 24 Hour Vital Signs Date Time Temp Pulse Resp B/P (MAP) Pulse Ox O2 Delivery O2 Flow Rate FiO2 09/21/19 14:00 56 54 79 09/21/19 12:00 99.0 60 19 125/74 (91) 96 09/21/19 11:47 63 09/21/19 09:00 Room Air 09/21/19 08:37 62 124/78 09/21/19 08:00 97.8 62 20 124/78 (93) 98 09/21/19 07:37 55 09/21/19 06:00 80 99 92 09/21/19 04:00 43 09/21/19 04:00 97.3 56 19 134/78 (96) 98 09/21/19 00:00 99.0 63 20 142/70 (94) 96 09/21/19 00:00 57 09/20/19 22:00 77 96 90 09/20/19 21:00 Room Air 09/20/19 20:00 99.0 61 20 138/74 (95) 98 09/20/19 20:00 49 09/20/19 16:00 64 09/20/19 16:00 99.1 76 20 114/61 (78) 96 Height (Feet): 6 Height (Inches): 3.00 Weight (Pounds): 220 Cardiovascular: RSR Respiratory: clear Abdomen: soft, non-tender, present bowel sounds Extremities: no edema, no tenderness, no cyanosis Laboratory Tests Test 09/21/19 06:54 White Blood Count 5.6 K/UL (4.8-10.8) Red Blood Count 4.43 M/UL (4.70-6.10) L Hemoglobin 12.5 G/DL (14.2-18.0) L Hematocrit 39.3 % (42.0-52.0) L Mean Corpuscular Volume 89 FL (80-99) Mean Corpuscular Hemoglobin 28.2 PG (27.0-31.0) Mean Corpuscular Hemoglobin Concent 31.8 G/DL (32.0-36.0) L Red Cell Distribution Width 13.4 % (11.6-14.8) Platelet Count 344 K/UL (150-450) Mean Platelet Volume 6.3 FL (6.5-10.1) L Neutrophils (%) (Auto) 76.8 % (45.0-75.0) H Lymphocytes (%) (Auto) 13.7 % (20.0-45.0) L Monocytes (%) (Auto) 8.9 % (1.0-10.0) Eosinophils (%) (Auto) 0.3 % (0.0-3.0) Basophils (%) (Auto) 0.4 % (0.0-2.0) Fibrinogen 789 mg/dL (200-400) H D-Dimer 0.80 mg/L FEU (0.00-0.49) H Sodium Level 136 MMOL/L (136-145) Potassium Level 4.8 MMOL/L (3.5-5.1) Chloride Level 104 MMOL/L (98-107) Carbon Dioxide Level 24 MMOL/L (21-32) Anion Gap 8 mmol/L (5-15) Blood Urea Nitrogen 11 mg/dL (7-18) Creatinine 1.5 MG/DL (0.55-1.30) H Estimat Glomerular Filtration Rate 56.1 mL/min (>60) Glucose Level 103 MG/DL (74-106) Calcium Level 8.4 MG/DL (8.5-10.1) L Ferritin 1223 NG/ML (8-388) H Lactate Dehydrogenase 365 U/L (81-234) H C-Reactive Protein, Quantitative 1.9 mg/dL (0.00-0.90) H Current Medications Medications (Trade) Dose Ordered Sig/Dae Route PRN Reason Start Time Stop Time Status Last Admin Dose Admin Acetaminophen (Tylenol) 650 mg Q4H PRN ORAL Mild Pain (Pain Scale 1-3) 09/17/19 23:30 10/17/19 23:29 09/19/19 08:46 Acetaminophen (Tylenol) 650 mg Q4H PRN RECTAL Mild Pain (Pain Scale 1-3) 09/17/19 23:30 10/17/19 23:29 Albuterol Sulfate (Proventil MDI) 2 puff Q4H PRN INH Shortness of Breath 09/18/19 09:45 12/17/19 09:44 Amlodipine Besylate (Norvasc) 5 mg DAILY ORAL 09/18/19 09:00 10/18/19 08:59 09/21/19 08:37 Ascorbic Acid (Vitamin C) 500 mg TWICE A DAY ORAL 09/18/19 18:00 10/18/19 17:59 09/21/19 08:37 Azithromycin (Zithromax) 500 mg DAILY ORAL 09/19/19 13:00 09/26/19 12:59 09/21/19 08:37 Ceftriaxone Sodium 1 gm/ Dextrose 55 ml @ 110 mls/hr Q24H IVPB 09/19/19 14:00 09/26/19 13:59 09/21/19 14:15 Guaifenesin/ Dextromethorphan (Robitussin DM Syrup) 10 ml Q4H PRN ORAL For Cough 09/20/19 17:30 12/19/19 17:29 09/21/19 11:33 Ondansetron HCl (Zofran) 4 mg Q6H PRN IVP Nausea & Vomiting 09/20/19 17:30 10/20/19 17:29 Pantoprazole (Protonix) 40 mg EVERY 12 HOURS IV 09/18/19 09:00 10/18/19 08:59 09/21/19 08:37 Polyethylene Glycol (Miralax) 17 gm BEDTIME ORAL 09/20/19 21:00 10/20/19 20:59 09/20/19 21:00 Sodium Chloride 1,000 ml @ 50 mls/hr Q20H IV 09/20/19 17:45 10/20/19 17:44 09/21/19 14:16 Zinc Sulfate (Zinc Sulfate) 220 mg DAILY ORAL 09/19/19 09:00 12/18/19 08:59 09/21/19 08:37 Leona Argueta M.D. Sep 21, 2019 15:26
[2019-09-21 16:00] VITALS: BP 124/70
--- NOTE | 2019-09-21 16:46 | Surgery Progress Note ---
Surgery Progress Note Subjective Symptoms: improved, pain absent, tolerating diet, voiding well, passing flatus Objective Last 24 Hour Vital Signs Date Time Temp Pulse Resp B/P (MAP) Pulse Ox O2 Delivery O2 Flow Rate FiO2 09/21/19 16:00 99.7 86 20 124/70 (88) 97 09/21/19 14:00 56 54 79 09/21/19 12:00 99.0 60 19 125/74 (91) 96 09/21/19 11:47 63 09/21/19 09:00 Room Air 09/21/19 08:37 62 124/78 09/21/19 08:00 97.8 62 20 124/78 (93) 98 09/21/19 07:37 55 09/21/19 06:00 80 99 92 09/21/19 04:00 43 09/21/19 04:00 97.3 56 19 134/78 (96) 98 09/21/19 00:00 99.0 63 20 142/70 (94) 96 09/21/19 00:00 57 09/20/19 22:00 77 96 90 09/20/19 21:00 Room Air 09/20/19 20:00 99.0 61 20 138/74 (95) 98 09/20/19 20:00 49 I&O Intake and Output 09/20/19 09/21/19 19:00 07:00 Intake Total 960 ml Output Total 1200 ml Balance 960 ml -1200 ml Intake Oral 720 ml IV Total 240 ml Output Urine Total 1200 ml # Voids 3 Dressing: other Wound: other Drains: other Cardiovascular: RSR Respiratory: decreased breath sounds Abdomen: soft, non-tender, present bowel sounds Extremities: no tenderness, no cyanosis Laboratory Tests Test 09/21/19 06:54 White Blood Count 5.6 K/UL (4.8-10.8) Red Blood Count 4.43 M/UL (4.70-6.10) L Hemoglobin 12.5 G/DL (14.2-18.0) L Hematocrit 39.3 % (42.0-52.0) L Mean Corpuscular Volume 89 FL (80-99) Mean Corpuscular Hemoglobin 28.2 PG (27.0-31.0) Mean Corpuscular Hemoglobin Concent 31.8 G/DL (32.0-36.0) L Red Cell Distribution Width 13.4 % (11.6-14.8) Platelet Count 344 K/UL (150-450) Mean Platelet Volume 6.3 FL (6.5-10.1) L Neutrophils (%) (Auto) 76.8 % (45.0-75.0) H Lymphocytes (%) (Auto) 13.7 % (20.0-45.0) L Monocytes (%) (Auto) 8.9 % (1.0-10.0) Eosinophils (%) (Auto) 0.3 % (0.0-3.0) Basophils (%) (Auto) 0.4 % (0.0-2.0) Fibrinogen 789 mg/dL (200-400) H D-Dimer 0.80 mg/L FEU (0.00-0.49) H Sodium Level 136 MMOL/L (136-145) Potassium Level 4.8 MMOL/L (3.5-5.1) Chloride Level 104 MMOL/L (98-107) Carbon Dioxide Level 24 MMOL/L (21-32) Anion Gap 8 mmol/L (5-15) Blood Urea Nitrogen 11 mg/dL (7-18) Creatinine 1.5 MG/DL (0.55-1.30) H Estimat Glomerular Filtration Rate 56.1 mL/min (>60) Glucose Level 103 MG/DL (74-106) Calcium Level 8.4 MG/DL (8.5-10.1) L Ferritin 1223 NG/ML (8-388) H Lactate Dehydrogenase 365 U/L (81-234) H C-Reactive Protein, Quantitative 1.9 mg/dL (0.00-0.90) H Plan Problems: (1) GI bleed Assessment & Plan: 68-year-old male with recent changes in stool consistency and color. Melena. Has been identified approximately 2 weeks now. No bright red blood noted. No active bleeding noted. Anemia but hemoglobin stable. Has not had a colonoscopy in the past or an endoscopy prior. Currently COVID positive. GI input noted and appreciated. No active bleeding will hold on endoscopy during positive viral effect. We will plan for treating COVID related pneumonia and plan for potential elective colonoscopy endoscopy. In the meantime if active bleeding noted or worsening condition may consider with precautions. No acute surgical intervention planned. We will monitor with serial exams Trend labs Okay for diet as tolerated We will monitor stool Thank you for let me participate in patient's care will follow with recommendations (2) Lab test positive for detection of COVID-19 virus (3) Black stools (4) Pneumonia due to COVID-19 virus Assessment & Plan: Lungs: Airspace opacities seen within the mid to lower lungs likely inflammatory or infectious. Pleural space: Unremarkable. Heart: Heart is enlarged. Mediastinum: Unremarkable. Bones/joints: Unremarkable. IMPRESSION: Airspace opacities seen within the mid to lower lungs likely inflammatory or infectious. (5) Syncope Kwasi Epstein Sep 21, 2019 16:46
--- NOTE | 2019-09-21 17:02 | Nephrology Progress Note ---
Assessment/Plan Problem List: (1) ROBERT (acute kidney injury) (2) Pneumonia due to COVID-19 virus (3) Syncope (4) Black stools (5) CKD (chronic kidney disease) stage 3, GFR 30-59 ml/min Plan continue iv hydration , comfort measures Subjective Constitutional: Reports: weakness HEENT: Reports: no symptoms Genitourinary: Reports: no symptoms Neurologic/Psychiatric: Reports: no symptoms Objective Objective Last 24 Hour Vital Signs Date Time Temp Pulse Resp B/P (MAP) Pulse Ox O2 Delivery O2 Flow Rate FiO2 09/21/19 16:00 99.7 86 20 124/70 (88) 97 09/21/19 15:30 64 09/21/19 14:00 56 54 79 09/21/19 12:00 99.0 60 19 125/74 (91) 96 09/21/19 11:47 63 09/21/19 09:00 Room Air 09/21/19 08:37 62 124/78 09/21/19 08:00 97.8 62 20 124/78 (93) 98 09/21/19 07:37 55 09/21/19 06:00 80 99 92 09/21/19 04:00 43 09/21/19 04:00 97.3 56 19 134/78 (96) 98 09/21/19 00:00 99.0 63 20 142/70 (94) 96 09/21/19 00:00 57 09/20/19 22:00 77 96 90 09/20/19 21:00 Room Air 09/20/19 20:00 99.0 61 20 138/74 (95) 98 09/20/19 20:00 49 Intake and Output 09/20/19 09/21/19 19:00 07:00 Intake Total 960 ml Output Total 1200 ml Balance 960 ml -1200 ml Intake Oral 720 ml IV Total 240 ml Output Urine Total 1200 ml # Voids 3 Laboratory Tests 09/21/19 06:54: White Blood Count 5.6, Red Blood Count 4.43L, Hemoglobin 12.5L, Hematocrit 39.3L , Mean Corpuscular Volume 89, Mean Corpuscular Hemoglobin 28.2, Mean Corpuscular Hemoglobin Concent 31.8L, Red Cell Distribution Width 13.4, Platelet Count 344, Mean Platelet Volume 6.3L, Neutrophils (%) (Auto) 76.8H, Lymphocytes (%) (Auto) 13.7L, Monocytes (%) (Auto) 8.9, Eosinophils (%) (Auto) 0.3, Basophils (%) (Auto) 0.4, Fibrinogen 789H, D-Dimer 0.80H, Sodium Level 136 , Potassium Level 4.8, Chloride Level 104, Carbon Dioxide Level 24, Anion Gap 8 , Blood Urea Nitrogen 11, Creatinine 1.5H, Estimat Glomerular Filtration Rate 56.1, Glucose Level 103, Calcium Level 8.4L, Ferritin 1223H, Lactate Dehydrogenase 365H, C-Reactive Protein, Quantitative 1.9H Height (Feet): 6 Height (Inches): 3.00 Weight (Pounds): 220 General Appearance: no apparent distress EENT: normal ENT inspection Cardiovascular: regular rhythm Respiratory/Chest: lungs clear Abdomen: non tender Extremities: no edema Neurologic: candy separator 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
[2019-09-21 20:00] VITALS: BP 117/75
--- NOTE | 2019-09-21 20:15 | Cardiology Progress Note ---
Assessment/Plan Assessment/Plan syncope renal insuf abn lfts melanotic stool covid 19 pneumonia sinus zoey at admission tele personally reviewed sinus midl zoey 3 am due to expected increased vagal tone no svt no vt no parses ekg personally reviewed hgb stable lwo grade febrile still on abx sat are good 96-97% on room air cv stable at the moment echo performed as the etiology of syncope felt to be volume related and : trop neg , pro bnp normal wall motion normal Subjective Subjective in isolation per pulm : on isolation no dizziness, no further syncopal episodes HH stable no further melanotic stools tolerates regular diet on RA no SOB Objective Last 24 Hour Vital Signs Date Time Temp Pulse Resp B/P (MAP) Pulse Ox O2 Delivery O2 Flow Rate FiO2 09/21/19 16:00 99.7 86 20 124/70 (88) 97 09/21/19 15:30 64 09/21/19 14:00 56 54 79 09/21/19 12:00 99.0 60 19 125/74 (91) 96 09/21/19 11:47 63 09/21/19 09:00 Room Air 09/21/19 08:37 62 124/78 09/21/19 08:00 97.8 62 20 124/78 (93) 98 09/21/19 07:37 55 09/21/19 06:00 80 99 92 09/21/19 04:00 43 09/21/19 04:00 97.3 56 19 134/78 (96) 98 09/21/19 00:00 99.0 63 20 142/70 (94) 96 09/21/19 00:00 57 09/20/19 22:00 77 96 90 09/20/19 21:00 Room Air Intake and Output 09/20/19 09/21/19 19:00 07:00 Intake Total 960 ml Output Total 1200 ml Balance 960 ml -1200 ml Intake Oral 720 ml IV Total 240 ml Output Urine Total 1200 ml # Voids 3 Laboratory Tests Test 09/21/19 06:54 White Blood Count 5.6 K/UL (4.8-10.8) Red Blood Count 4.43 M/UL (4.70-6.10) L Hemoglobin 12.5 G/DL (14.2-18.0) L Hematocrit 39.3 % (42.0-52.0) L Mean Corpuscular Volume 89 FL (80-99) Mean Corpuscular Hemoglobin 28.2 PG (27.0-31.0) Mean Corpuscular Hemoglobin Concent 31.8 G/DL (32.0-36.0) L Red Cell Distribution Width 13.4 % (11.6-14.8) Platelet Count 344 K/UL (150-450) Mean Platelet Volume 6.3 FL (6.5-10.1) L Neutrophils (%) (Auto) 76.8 % (45.0-75.0) H Lymphocytes (%) (Auto) 13.7 % (20.0-45.0) L Monocytes (%) (Auto) 8.9 % (1.0-10.0) Eosinophils (%) (Auto) 0.3 % (0.0-3.0) Basophils (%) (Auto) 0.4 % (0.0-2.0) Fibrinogen 789 mg/dL (200-400) H D-Dimer 0.80 mg/L FEU (0.00-0.49) H Sodium Level 136 MMOL/L (136-145) Potassium Level 4.8 MMOL/L (3.5-5.1) Chloride Level 104 MMOL/L (98-107) Carbon Dioxide Level 24 MMOL/L (21-32) Anion Gap 8 mmol/L (5-15) Blood Urea Nitrogen 11 mg/dL (7-18) Creatinine 1.5 MG/DL (0.55-1.30) H Estimat Glomerular Filtration Rate 56.1 mL/min (>60) Glucose Level 103 MG/DL (74-106) Calcium Level 8.4 MG/DL (8.5-10.1) L Ferritin 1223 NG/ML (8-388) H Lactate Dehydrogenase 365 U/L (81-234) H C-Reactive Protein, Quantitative 1.9 mg/dL (0.00-0.90) H Objective pt in isolation for covid per pulm pa Respiratory/Chest: lungs clear, no respiratory distress, no accessory muscle use Cardiovascular/Chest: normal rate Abdomen: normal bowel sounds, non tender, soft Extremities: normal range of motion, no calf tenderness, normal capillary refill, no edema Miguel Dunn MD Sep 21, 2019 20:15
[2019-09-21] MEDS: Miralax 17gm pkt ORAL SCH (20:59)
[2019-09-22] VITALS: BP 120/71
[2019-09-22 04:00] VITALS: BP 125/76
[2019-09-22 07:21] LABS: BASOPHILS % (AUTO) 0.5 % (0.0-2.0); EOSINOPHILS % (AUTO) 0.4 % (0.0-3.0); HEMATOCRIT 40.3 % (42.0-52.0); HEMOGLOBIN 12.6 G/DL (14.2-18.0); LYMPHOCYTES % (AUTO) 15.8 % (20.0-45.0); MEAN CORPUSCULAR VOLUME 89 FL (80-99); MONOCYTES % (AUTO) 10.3 % (1.0-10.0); PLATELET COUNT 374 K/UL (150-450); RED BLOOD COUNT 4.54 M/UL (4.70-6.10); RED CELL DISTRIBUTION WIDTH 13.1 % (11.6-14.8); WHITE BLOOD COUNT 4.5 K/UL (4.8-10.8)
--- NOTE | 2019-09-22 07:43 | Pulmonology Progress Note ---
Michelle Reed EXPLORATION DRILLER 09/22/19 0743: Subjective ROS Limited/Unobtainable: Yes Allergies: Coded Allergies: No Known Allergies (Unverified , 09/17/19) Subjective on isolation no dizziness, no further syncopal episodes HH stable no further melanotic stools tolerates regular diet on RA no SOB CXR 09/20 no changes from prior Objective Last 24 Hour Vital Signs Date Time Temp Pulse Resp B/P (MAP) Pulse Ox O2 Delivery O2 Flow Rate FiO2 09/22/19 06:00 62 66 88 09/22/19 04:00 49 09/22/19 04:00 97.8 66 18 125/76 (92) 97 09/22/19 00:00 48 09/22/19 00:00 97.3 64 18 120/71 (87) 96 09/21/19 22:00 60 60 80 09/21/19 21:00 Room Air 09/21/19 20:00 99.0 60 17 117/75 (89) 95 09/21/19 20:00 67 09/21/19 16:00 99.7 86 20 124/70 (88) 97 09/21/19 15:30 64 09/21/19 14:00 56 54 79 09/21/19 12:00 99.0 60 19 125/74 (91) 96 09/21/19 11:47 63 09/21/19 09:00 Room Air 09/21/19 08:37 62 124/78 09/21/19 08:00 97.8 62 20 124/78 (93) 98 Intake and Output 09/21/19 09/22/19 19:00 07:00 Intake Total 340 ml Balance 340 ml Intake Oral 240 ml IV Total 100 ml # Voids 3 # Bowel Movements 2 1 Objective General Appearance: WD/WN - in NAD , alert Lines, tubes and drains: peripheral HEENT: normocephalic, atraumatic, anicteric, mucous membranes moist Neck: supple Respiratory/Chest: lungs clear, no respiratory distress, no accessory muscle use Cardiovascular/Chest: normal rate Abdomen: normal bowel sounds, non tender, soft Extremities: normal range of motion, no calf tenderness, normal capillary refill, no edema Skin Exam: warm/dry Neurologic: rn relief charge II-XII grossly normal, no motor/sensory deficits, alert, oriented x 3, responsive Musculoskeletal: normal muscle bulk Laboratory Tests 09/22/19 05:40: White Blood Count 4.5L, Red Blood Count 4.54L, Hemoglobin 12.6L, Hematocrit 40.3L, Mean Corpuscular Volume 89, Mean Corpuscular Hemoglobin 27.7, Mean Corpuscular Hemoglobin Concent 31.2L, Red Cell Distribution Width 13.1, Platelet Count 374, Mean Platelet Volume 6.4L, Neutrophils (%) (Auto) 73.0, Lymphocytes (%) (Auto) 15.8L, Monocytes (%) (Auto) 10.3H, Eosinophils (%) (Auto ) 0.4, Basophils (%) (Auto) 0.5, Sodium Level [Pending], Potassium Level [ Pending], Chloride Level [Pending], Carbon Dioxide Level [Pending], Blood Urea Nitrogen [Pending], Creatinine [Pending], Estimat Glomerular Filtration Rate [ Pending], Glucose Level [Pending], Calcium Level [Pending] Current Medications Medications (Trade) Dose Ordered Sig/Dae Route PRN Reason Start Time Stop Time Status Last Admin Dose Admin Acetaminophen (Tylenol) 650 mg Q4H PRN ORAL Mild Pain (Pain Scale 1-3) 09/17/19 23:30 10/17/19 23:29 09/19/19 08:46 Acetaminophen (Tylenol) 650 mg Q4H PRN RECTAL Mild Pain (Pain Scale 1-3) 09/17/19 23:30 10/17/19 23:29 Albuterol Sulfate (Proventil MDI) 2 puff Q4H PRN INH Shortness of Breath 09/18/19 09:45 12/17/19 09:44 Amlodipine Besylate (Norvasc) 5 mg DAILY ORAL 09/18/19 09:00 10/18/19 08:59 09/21/19 08:37 Ascorbic Acid (Vitamin C) 500 mg TWICE A DAY ORAL 09/18/19 18:00 10/18/19 17:59 09/21/19 17:09 Azithromycin (Zithromax) 500 mg DAILY ORAL 09/19/19 13:00 09/26/19 12:59 09/21/19 08:37 Ceftriaxone Sodium 1 gm/ Dextrose 55 ml @ 110 mls/hr Q24H IVPB 09/19/19 14:00 09/26/19 13:59 09/21/19 14:15 Guaifenesin/ Dextromethorphan (Robitussin DM Syrup) 10 ml Q4H PRN ORAL For Cough 09/20/19 17:30 12/19/19 17:29 09/21/19 11:33 Ondansetron HCl (Zofran) 4 mg Q6H PRN IVP Nausea & Vomiting 09/20/19 17:30 10/20/19 17:29 Pantoprazole (Protonix) 40 mg EVERY 12 HOURS IV 09/18/19 09:00 10/18/19 08:59 09/21/19 20:59 Polyethylene Glycol (Miralax) 17 gm BEDTIME ORAL 09/20/19 21:00 10/20/19 20:59 09/20/19 21:00 Sodium Chloride 1,000 ml @ 50 mls/hr Q20H IV 09/20/19 17:45 10/20/19 17:44 09/21/19 14:16 Zinc Sulfate (Zinc Sulfate) 220 mg DAILY ORAL 09/19/19 09:00 12/18/19 08:59 09/21/19 08:37 Assessment/Plan Assessment/Plan ASSESSMENT COVID-19 PNA possible GI bleeding /melanotic stools Syncope ROBERT Hx of hypertension Transaminitis PLAN OF CARE tele isolation O2 titrate to keep sat above 92%, pulse ox stable on RA MDI rapid COVID 09/16 and COVID by PCR 09/17 both positive, isolation empiric abx : Azithromycin/ completed and ceftriaxone ID on board supportive care Zinc and vit C fup CXR 09/18 bilateral interstitial and airspace opacities, no change from prior hold on steroid for now, given GI bleeding CXR 09/20 - Bilateral interstitial and airspace infiltrates versus edema persists , unchanged. The pleural spaces remain clear Venous Duplex BLE SCD given GI bleeding , D dimer stable monitor inflammatory markers, elevated ferritin 1210, LDH 424-> 365; CRP 3.0 -> 1.9 IL-6 -65.7 hep panel NGT, HIV test nonreactive TB spot test pending serial troponin x 2 NGT, ECG no acute ischemic changes, r/o for acute NH cardio eval appreciated ECHO woth pEF 60%, no evidence of WMA BP management with CCB, stable orthostatic VS no evidence of orthostasis, started after already hydrated syncope with diff plausible etiologies, including COVID, orthostatic changes, dehydration, GI bleed per cardio syncope likely due to orthostasis in the setting of COVID pneumonia and decreased oral intake need to rule out bradyarrhythmia as it appeared that pt has some degree of sinus node disease. continue tele Protonix IV bid GI eval appreciated trend LFT per GI hold on endoscopy for now given + CoVID and stable HH diet advanced, tolerates stool OB x 2 pending generous IVF monitor renal parameters, lytes, avoid nephrotoxics, nephro eval appreciated creat 1.5 09/20, awaiting for BMP discussed with ID Dr Argueta pt clear for dc from ID standpoint isolation for 4 more days ( symptoms started 09/14, last low grade fever 09/20 awaiting for BMP , get Ceftriaxone and probably dc in afternoon case discussed and evaluated by supervising physician Jose Luis Loera MD 09/23/192035: Subjective Allergies: Coded Allergies: No Known Allergies (Unverified , 09/17/19) Assessment/Plan Assessment/Plan Patient seen and examined with EXPLORATION DRILLER. Agree with above A&P as it reflects our joint deliberations. COVID-19 acute respiratory illness. Tolerating room air. Would start remdesivir irrespective of renal failure if develops hypoxemia. f/u CRP and low threshold to give dexamethasone as well. Michelle Rede NP Sep 22, 2019 07:43 Jose Luis Loera MD Sep 23, 2019 20:36
[2019-09-22 08:00] VITALS: BP 124/71
[2019-09-22] MEDS: Ascorbic Acid 500mg tab ORAL SCH (08:45)
[2019-09-22] MEDS: Azithromycin 250mg tab ORAL SCH (08:45)
[2019-09-22] MEDS: Zinc Sulfate 220mg ORAL SCH (08:45)
[2019-09-22] MEDS: Pantoprazole Inj IV SCH (08:45)
[2019-09-22 09:37] LABS: ANION GAP 12 mmol/L (5-15); BLOOD UREA NITROGEN 17 mg/dL (7-18); CALCIUM 8.6 MG/DL (8.5-10.1); CARBON DIOXIDE 22 MMOL/L (21-32); CHLORIDE 105 MMOL/L (98-107); CREATININE 1.5 MG/DL (0.55-1.30); POTASSIUM 4.9 MMOL/L (3.5-5.1); SODIUM 139 MMOL/L (136-145)
--- NOTE | 2019-09-22 11:18 | General Progress Note ---
Assessment/Plan Problem List: (1) Black stools ICD Codes: K92.1 - Melena SNOMED: 000325688 (2) Syncope ICD Codes: R55 - Syncope and collapse SNOMED: [id number] Qualifiers: Qualified Codes: R55 - Syncope and collapse (3) Pneumonia due to COVID-19 virus ICD Codes: U07.1 - COVID-19; J12.89 - Other viral pneumonia SNOMED: 808733812, [id number] Assessment/Plan: stable H&H above 12 pending stool ob ppi bid EGD on hold given COVID + and stable H&H Subjective ROS Limited/Unobtainable: No Allergies: Coded Allergies: No Known Allergies (Unverified , 09/17/19) Objective Last 24 Hour Vital Signs Date Time Temp Pulse Resp B/P (MAP) Pulse Ox O2 Delivery O2 Flow Rate FiO2 09/22/19 09:00 Room Air 09/22/19 08:46 64 124/71 09/22/19 08:00 64 18 124/71 (88) 99 09/22/19 07:57 52 09/22/19 06:00 62 66 88 09/22/19 04:00 49 09/22/19 04:00 97.8 66 18 125/76 (92) 97 09/22/19 00:00 48 09/22/19 00:00 97.3 64 18 120/71 (87) 96 09/21/19 22:00 60 60 80 09/21/19 21:00 Room Air 09/21/19 20:00 99.0 60 17 117/75 (89) 95 09/21/19 20:00 67 09/21/19 16:00 99.7 86 20 124/70 (88) 97 09/21/19 15:30 64 09/21/19 14:00 56 54 79 09/21/19 12:00 99.0 60 19 125/74 (91) 96 09/21/19 11:47 63 Intake and Output 09/21/19 09/22/19 19:00 07:00 Intake Total 340 ml Balance 340 ml Intake Oral 240 ml IV Total 100 ml # Voids 3 # Bowel Movements 2 1 Laboratory Tests 09/22/19 05:40: White Blood Count 4.5L, Red Blood Count 4.54L, Hemoglobin 12.6L, Hematocrit 40.3L, Mean Corpuscular Volume 89, Mean Corpuscular Hemoglobin 27.7, Mean Corpuscular Hemoglobin Concent 31.2L, Red Cell Distribution Width 13.1, Platelet Count 374, Mean Platelet Volume 6.4L, Neutrophils (%) (Auto) 73.0, Lymphocytes (%) (Auto) 15.8L, Monocytes (%) (Auto) 10.3H, Eosinophils (%) (Auto ) 0.4, Basophils (%) (Auto) 0.5, Sodium Level 139, Potassium Level 4.9, Chloride Level 105, Carbon Dioxide Level 22, Anion Gap 12, Blood Urea Nitrogen 17, Creatinine 1.5H, Estimat Glomerular Filtration Rate 56.1, Glucose Level 96, Calcium Level 8.6 Height (Feet): 6 Height (Inches): 3.00 Weight (Pounds): 220 General Appearance: no apparent distress EENT: normal ENT inspection Neck: supple Cardiovascular: normal rate Respiratory/Chest: decreased breath sounds Abdomen: normal bowel sounds, non tender, soft Extremities: non-tender Scott Owens MD Sep 22, 2019 11:18
[2019-09-22 12:00] VITALS: BP 128/83
--- NOTE | 2019-09-22 12:02 | Nephrology Progress Note ---
Assessment/Plan Problem List: (1) ROBERT (acute kidney injury) (2) Pneumonia due to COVID-19 virus (3) Syncope (4) Black stools (5) CKD (chronic kidney disease) stage 3, GFR 30-59 ml/min Plan continue iv hydration , comfort measures, orders reviewed Subjective Constitutional: Reports: weakness HEENT: Reports: no symptoms Genitourinary: Reports: no symptoms Neurologic/Psychiatric: Reports: no symptoms Objective Objective Last 24 Hour Vital Signs Date Time Temp Pulse Resp B/P (MAP) Pulse Ox O2 Delivery O2 Flow Rate FiO2 09/22/19 09:00 Room Air 09/22/19 08:46 64 124/71 09/22/19 08:00 64 18 124/71 (88) 99 09/22/19 07:57 52 09/22/19 06:00 62 66 88 09/22/19 04:00 49 09/22/19 04:00 97.8 66 18 125/76 (92) 97 09/22/19 00:00 48 09/22/19 00:00 97.3 64 18 120/71 (87) 96 09/21/19 22:00 60 60 80 09/21/19 21:00 Room Air 09/21/19 20:00 99.0 60 17 117/75 (89) 95 09/21/19 20:00 67 09/21/19 16:00 99.7 86 20 124/70 (88) 97 09/21/19 15:30 64 09/21/19 14:00 56 54 79 Intake and Output 09/21/19 09/22/19 19:00 07:00 Intake Total 340 ml Balance 340 ml Intake Oral 240 ml IV Total 100 ml # Voids 3 # Bowel Movements 2 1 Laboratory Tests 09/22/19 05:40: White Blood Count 4.5L, Red Blood Count 4.54L, Hemoglobin 12.6L, Hematocrit 40.3L, Mean Corpuscular Volume 89, Mean Corpuscular Hemoglobin 27.7, Mean Corpuscular Hemoglobin Concent 31.2L, Red Cell Distribution Width 13.1, Platelet Count 374, Mean Platelet Volume 6.4L, Neutrophils (%) (Auto) 73.0, Lymphocytes (%) (Auto) 15.8L, Monocytes (%) (Auto) 10.3H, Eosinophils (%) (Auto ) 0.4, Basophils (%) (Auto) 0.5, Sodium Level 139, Potassium Level 4.9, Chloride Level 105, Carbon Dioxide Level 22, Anion Gap 12, Blood Urea Nitrogen 17, Creatinine 1.5H, Estimat Glomerular Filtration Rate 56.1, Glucose Level 96, Calcium Level 8.6 Height (Feet): 6 Height (Inches): 3.00 Weight (Pounds): 220 General Appearance: no apparent distress EENT: normal ENT inspection Neck: non-tender Cardiovascular: regular rhythm Respiratory/Chest: lungs clear Extremities: pitting, no edema Neurologic: functional skills tutor II-XII grossly normal Dallas Ness MD Sep 22, 2019 12:02
--- NOTE | 2019-09-22 12:37 | Infectious Diseases Prog Note ---
Assessment/Plan Assessment: Pneumonia- 2ry to COVID19- on RA- not hypoxic on ABG -GI manifestation of covid (gastrotenteritis) -09/20 CXR: Bilateral interstitial and airspace nfiltrates versus edema persists, unchanged. The pleural spaces remain clear -09/17 SARS-COV2 PCR + -09/16 CXR: Airspace opacities seen within the mid to lower lungs likely inflammatory or infectious. -09/16 rapid covid positive -D-dimer 0.48 (09/16) -CRp 1.1 (09/07) -LDH 392 (09/16), 359 (09/17) -Ferritin 992 (09/16), 967 (09/17) Fever; SP No leukocytosis Lymphopenia -u./a neg -09/16 BCx neg ROBERT; improving Elevated LFTs; improving -acute hep panel neg, HIV ab screen neg BPH prostatectomy HTN Plan: -Continue Ceftriaxone and azithromycin #07/11 -Will consider remdesevir and decadron if Spo2 <94% at RA -f/u cx -Monitor CBC/CMP, temperatures -COVID19 isolation -Monitor CXR and inflammatory markers Thank you for consulting [facility]. Will continue to follow along with you. Neymar marcial RN. Subjective Allergies: Coded Allergies: No Known Allergies (Unverified , 09/17/19) afebrile in >48hrs at RA mild leukopenia Objective Last 24 Hour Vital Signs Date Time Temp Pulse Resp B/P (MAP) Pulse Ox O2 Delivery O2 Flow Rate FiO2 09/22/19 12:00 98.1 68 20 128/83 (98) 100 09/22/19 09:00 Room Air 09/22/19 08:46 64 124/71 09/22/19 08:00 64 18 124/71 (88) 99 09/22/19 07:57 52 09/22/19 06:00 62 66 88 09/22/19 04:00 49 09/22/19 04:00 97.8 66 18 125/76 (92) 97 09/22/19 00:00 48 09/22/19 00:00 97.3 64 18 120/71 (87) 96 09/21/19 22:00 60 60 80 09/21/19 21:00 Room Air 09/21/19 20:00 99.0 60 17 117/75 (89) 95 09/21/19 20:00 67 09/21/19 16:00 99.7 86 20 124/70 (88) 97 09/21/19 15:30 64 09/21/19 14:00 56 54 79 Height (Feet): 6 Height (Inches): 3.00 Weight (Pounds): 220 Cardiovascular: RSR Respiratory: clear Abdomen: soft, non-tender, present bowel sounds Extremities: no edema, no tenderness, no cyanosis Laboratory Tests Test 09/22/19 05:40 White Blood Count 4.5 K/UL (4.8-10.8) L Red Blood Count 4.54 M/UL (4.70-6.10) L Hemoglobin 12.6 G/DL (14.2-18.0) L Hematocrit 40.3 % (42.0-52.0) L Mean Corpuscular Volume 89 FL (80-99) Mean Corpuscular Hemoglobin 27.7 PG (27.0-31.0) Mean Corpuscular Hemoglobin Concent 31.2 G/DL (32.0-36.0) L Red Cell Distribution Width 13.1 % (11.6-14.8) Platelet Count 374 K/UL (150-450) Mean Platelet Volume 6.4 FL (6.5-10.1) L Neutrophils (%) (Auto) 73.0 % (45.0-75.0) Lymphocytes (%) (Auto) 15.8 % (20.0-45.0) L Monocytes (%) (Auto) 10.3 % (1.0-10.0) H Eosinophils (%) (Auto) 0.4 % (0.0-3.0) Basophils (%) (Auto) 0.5 % (0.0-2.0) Sodium Level 139 MMOL/L (136-145) Potassium Level 4.9 MMOL/L (3.5-5.1) Chloride Level 105 MMOL/L (98-107) Carbon Dioxide Level 22 MMOL/L (21-32) Anion Gap 12 mmol/L (5-15) Blood Urea Nitrogen 17 mg/dL (7-18) Creatinine 1.5 MG/DL (0.55-1.30) H Estimat Glomerular Filtration Rate 56.1 mL/min (>60) Glucose Level 96 MG/DL (74-106) Calcium Level 8.6 MG/DL (8.5-10.1) Current Medications Medications (Trade) Dose Ordered Sig/Dae Route PRN Reason Start Time Stop Time Status Last Admin Dose Admin Acetaminophen (Tylenol) 650 mg Q4H PRN ORAL Mild Pain (Pain Scale 1-3) 09/17/19 23:30 10/17/19 23:29 09/19/19 08:46 Acetaminophen (Tylenol) 650 mg Q4H PRN RECTAL Mild Pain (Pain Scale 1-3) 09/17/19 23:30 10/17/19 23:29 Albuterol Sulfate (Proventil MDI) 2 puff Q4H PRN INH Shortness of Breath 09/18/19 09:45 12/17/19 09:44 Amlodipine Besylate (Norvasc) 5 mg DAILY ORAL 09/18/19 09:00 10/18/19 08:59 09/22/19 08:46 Ascorbic Acid (Vitamin C) 500 mg TWICE A DAY ORAL 09/18/19 18:00 10/18/19 17:59 09/22/19 08:45 Azithromycin (Zithromax) 500 mg DAILY ORAL 09/19/19 13:00 09/26/19 12:59 09/22/19 08:45 Ceftriaxone Sodium 1 gm/ Dextrose 55 ml @ 110 mls/hr Q24H IVPB 09/19/19 14:00 09/26/19 13:59 09/21/19 14:15 Guaifenesin/ Dextromethorphan (Robitussin DM Syrup) 10 ml Q4H PRN ORAL For Cough 09/20/19 17:30 12/19/19 17:29 09/21/19 11:33 Ondansetron HCl (Zofran) 4 mg Q6H PRN IVP Nausea & Vomiting 09/20/19 17:30 10/20/19 17:29 Pantoprazole (Protonix) 40 mg EVERY 12 HOURS IV 09/18/19 09:00 10/18/19 08:59 09/22/19 08:45 Polyethylene Glycol (Miralax) 17 gm BEDTIME ORAL 09/20/19 21:00 10/20/19 20:59 09/20/19 21:00 Sodium Chloride 1,000 ml @ 50 mls/hr Q20H IV 09/20/19 17:45 10/20/19 17:44 09/22/19 08:46 Zinc Sulfate (Zinc Sulfate) 220 mg DAILY ORAL 09/19/19 09:00 12/18/19 08:59 09/22/19 08:45 Leona Argueta M.D. Sep 22, 2019 12:37
--- NOTE | 2019-09-22 12:48 | Surgery Progress Note ---
Surgery Progress Note Subjective Additional Comments no acute events comfortable stable Objective Last 24 Hour Vital Signs Date Time Temp Pulse Resp B/P (MAP) Pulse Ox O2 Delivery O2 Flow Rate FiO2 09/22/19 12:00 98.1 68 20 128/83 (98) 100 09/22/19 09:00 Room Air 09/22/19 08:46 64 124/71 09/22/19 08:00 64 18 124/71 (88) 99 09/22/19 07:57 52 09/22/19 06:00 62 66 88 09/22/19 04:00 49 09/22/19 04:00 97.8 66 18 125/76 (92) 97 09/22/19 00:00 48 09/22/19 00:00 97.3 64 18 120/71 (87) 96 09/21/19 22:00 60 60 80 09/21/19 21:00 Room Air 09/21/19 20:00 99.0 60 17 117/75 (89) 95 09/21/19 20:00 67 09/21/19 16:00 99.7 86 20 124/70 (88) 97 09/21/19 15:30 64 09/21/19 14:00 56 54 79 I&O Intake and Output 09/21/19 09/22/19 19:00 07:00 Intake Total 340 ml Balance 340 ml Intake Oral 240 ml IV Total 100 ml # Voids 3 # Bowel Movements 2 1 Dressing: dry Wound: clean Cardiovascular: RSR Respiratory: clear Abdomen: soft, non-tender, present bowel sounds Extremities: no edema, no tenderness, no cyanosis Laboratory Tests Test 09/22/19 05:40 White Blood Count 4.5 K/UL (4.8-10.8) L Red Blood Count 4.54 M/UL (4.70-6.10) L Hemoglobin 12.6 G/DL (14.2-18.0) L Hematocrit 40.3 % (42.0-52.0) L Mean Corpuscular Volume 89 FL (80-99) Mean Corpuscular Hemoglobin 27.7 PG (27.0-31.0) Mean Corpuscular Hemoglobin Concent 31.2 G/DL (32.0-36.0) L Red Cell Distribution Width 13.1 % (11.6-14.8) Platelet Count 374 K/UL (150-450) Mean Platelet Volume 6.4 FL (6.5-10.1) L Neutrophils (%) (Auto) 73.0 % (45.0-75.0) Lymphocytes (%) (Auto) 15.8 % (20.0-45.0) L Monocytes (%) (Auto) 10.3 % (1.0-10.0) H Eosinophils (%) (Auto) 0.4 % (0.0-3.0) Basophils (%) (Auto) 0.5 % (0.0-2.0) Sodium Level 139 MMOL/L (136-145) Potassium Level 4.9 MMOL/L (3.5-5.1) Chloride Level 105 MMOL/L (98-107) Carbon Dioxide Level 22 MMOL/L (21-32) Anion Gap 12 mmol/L (5-15) Blood Urea Nitrogen 17 mg/dL (7-18) Creatinine 1.5 MG/DL (0.55-1.30) H Estimat Glomerular Filtration Rate 56.1 mL/min (>60) Glucose Level 96 MG/DL (74-106) Calcium Level 8.6 MG/DL (8.5-10.1) Plan Problems: (1) GI bleed Assessment & Plan: 68-year-old male with recent changes in stool consistency and color. Melena. Has been identified approximately 2 weeks now. No bright red blood noted. No active bleeding noted. Anemia but hemoglobin stable. Has not had a colonoscopy in the past or an endoscopy prior. Currently COVID positive. GI input noted and appreciated. No active bleeding will hold on endoscopy during positive viral effect. We will plan for treating COVID related pneumonia and plan for potential elective colonoscopy endoscopy. In the meantime if active bleeding noted or worsening condition may consider with precautions. No acute surgical intervention planned. We will monitor with serial exams Trend labs Okay for diet as tolerated We will monitor stool Thank you for let me participate in patient's care will follow with recommendations (2) Lab test positive for detection of COVID-19 virus (3) Black stools (4) Pneumonia due to COVID-19 virus Assessment & Plan: Lungs: Airspace opacities seen within the mid to lower lungs likely inflammatory or infectious. Pleural space: Unremarkable. Heart: Heart is enlarged. Mediastinum: Unremarkable. Bones/joints: Unremarkable. IMPRESSION: Airspace opacities seen within the mid to lower lungs likely inflammatory or infectious. (5) Syncope Kwasi Epstein Sep 22, 2019 12:48
--- NOTE | 2019-09-22 13:49 | Discharge Instructions ---
Discharge Instructions Discharge Instructions Follow up with: with PMD in 1 week Call MD/Return to Hospital if: if shortness of breathk fever, cough Diet: regular Activity: resume normal activities, up ad dayday, as tolerated Special Instructions keep self isolation for additional 4 days For Congestive Heart Failure Reminder Report to your physician any weight gain of 5 pounds or more in one week. Michelle Reed NP Sep 22, 2019 13:49
[2019-09-22] MEDS: cefTRIAXone 1 GM in D5W 55 ML IVPB SCH (14:22)
[2019-09-22] MEDS ORDERED: Tubing IV Secondary IV ONE (15:59)
[2019-09-22] MEDS ORDERED: 1/2 NS 1000ml IV ONE (15:59)
--- NOTE | 2019-09-26 12:33 | Discharge Summary ---
Discharge Summary Discharge Summary _ DATE OF ADMISSION: 09/17/2019 DATE OF DISCHARGE: 09/22/2019 DISCHARGED BY: REASON FOR ADMISSION: 68 years old male with PMH of hypertension, TURP, presented to emergency room for evaluation of recurrent near syncope episodes. Symptoms were ongoing for a week. Patient passed out couple of times. He denied chest pain and palpitations. He reported generalized weakness. Patient was nauseated , but no vomiting. He reported passing black tarry stools. No abdominal pain. Patient reported shortness of breath while walking , but no cough ,no sore throat . Upon evaluation vital signs were stable ; pulse oximetry was stable on room air and pt was afebrile. Laboratory work-up revealed no leukocytosis ,hemoglobin 12.7 ,hematocrit 40.6, platelet count 229. BUN 18, creatinine 1.8. Glucose 111. Ferritin 992. LDH 392. D dimer 0.48. Troponin 0.02 , proBNP 114. ECG with sinus rhythm, no acute ischemic changes. AST 90 , ALT 98, lipase 282. Lactic acid 0.7 , Urinalysis revealed +2 protein, no pyuria and few bacteria Urine toxicology screen was negative. Rapid COVID-19 was positive. Chest x-ray revealed airspace opacities within the mid to lower lungs. Patient admitted for recurrent syncope , COVID-19 infection , pneumonia, GI bleeding, ROBERT. CONSULTANTS: manager mass Dr. Gomes ID specialist Dr. Argueta GI specialist Dr. Owens electric meter technician Dr. Ness [facility] COURSE: Patient admitted to isolation room to telemetry floor. Patient started on IV fluids , IV Protonix and initially was given liquid diet. Supplemental oxygen provided and titrated to keep saturation above 92%. Pulmonary toilet with MDI provided. SARS COV 2 by PCR on 09/17 was detected as well as the previously mentioned rapid testing on 09/16. Patient received empiric antibiotics: azithromycin and ceftriaxone as per ID specialist, which he completed. Patient received supportive treatment with zinc and vitamin C. No steroids were given due to possible GI bleeding. Patient was followed-up with chest x-ray. Chest x-ray on 09/18/2014 revealed unchanged bilateral interstitial and airspace infiltrates versus edema. The pleural spaces remained clear. Patient initially had elevated ferritin ,LDH, and CRP along with IL-6 - 65.7. Inflammatory markers started to trend down. Serial troponin x2 were negative. EKG revealed no acute ischemic changes. Patient was ruled out for acute myocardial infarction. Echocardiogram revealed preserved ejection fraction and no evidence of wall motion abnormality. Blood pressure was managed with calcium channel kelsi. Orthostatic vital signs revealed mild orthostatic changes on some occasions. However measurement of orthostatics started after patient was already hydrated on ED and in on the floor. Syncope was likely due to orthostasis in the setting of COVID pneumonia and decreased oral intake. LFT trending down. Hepatitis panel was negative. HIV test was nonreactive. GI specialist recommended hold on endoscopy , given positive COVID and stable hemoglobin and hematocrit. Diet was slowly advanced as tolerated. Patient was able to tolerate diet. No further melanotic stools. Patient received IV hydration. Renal parameters and electrolytes were closely monitored. Nephrotoxic's were avoided. Creatinine down from initial 1.8 to 1.5. Per ID specialist patient can be discharged home with isolation for 4 more days with total of 10 days from the onset of the symptoms ( symptoms started on 09/14; last low-grade fever was on 09/20 ). Patient clinically stabilized and was ready for discharge. FINAL DIAGNOSES: COVID-19 pneumonia Possible GI bleeding/ Melanotic stools Syncope Acute kidney injury on chronic kidney disease stage III Hypertension Transaminitis DISCHARGE MEDICATIONS: See Medication Reconciliation list. DISCHARGE INSTRUCTIONS: Patient was discharged home. Continue isolation for additional 4 days. Follow-up with a primary care provider in one week. Mcihelle Reed NP Sep 26, 2019 12:33
== END 2019-09-22 16:00 | disposition home or self-care (01) | DRG 177 ==
LOC: EDBD 16:16 → EMR 16:38 → EDBEDREQ 17:48 → 2E 18:43 → EDBEDREQ 19:44
DX: U07.1 COVID-19 (principal); J12.89 Other viral pneumonia; K92.2 Gastrointestinal hemorrhage, unspecified; N17.9 Acute kidney failure, unspecified; I95.1 Orthostatic hypotension; I12.9 Hypertensive chronic kidney disease with stage 1 through stage 4 chronic kidney disease, or unspecified chronic kidney disease; N18.3 Chronic kidney disease, stage 3 (moderate); E86.0 Dehydration; D72.810 Lymphocytopenia; R74.0 Nonspecific elevation of levels of transaminase and lactic acid dehydrogenase [LDH]
CPT/HCPCS: 36415; 36600; 71045; 80048; 80053; 80307; 81003; 82248; 82550; 82728; 82803; 83520; 83605; 83615; 83690; 83880; 84484; 85007; 85025; 85379; 85384; 85610; 85651; 85730; 86140; 86703; 86705; 86709; 86803; 86850; 86900; 86901; 87040; 87340; 93005; 93306; 96361; 96365; 96367; 96375; 99285; J2405; J7030; U0002